=== PATIENT | male | born 1960 | race Asian ===

== ENCOUNTER 2016-10-18 | Outpatient (CLI) | payer MEDICAID | END 2016-10-18 09:16 | disposition home or self-care (01) | DX: R00.2 Palpitations (principal) ==

== ENCOUNTER 2016-10-31 09:53 | Outpatient (CLI) | payer MEDICAID | END 2016-10-31 09:54 | disposition home or self-care (01) | DX: R00.2 Palpitations (principal); D64.9 Anemia, unspecified ==

== ENCOUNTER 2018-06-28 08:00 | Outpatient (CLI) | payer MEDICAID ==
[2018-06-28 18:41] LABS: BILIRUBIN,URINE NEGATIVE (NEGATIVE); GLUCOSE, URINE (UA) NEGATIVE (NEGATIVE); KETONES,URINE (UA) NEGATIVE (NEGATIVE); LEUKOCYTE ESTERASE, URINE SMALL (NEGATIVE); NITRITE,URINE POSITIVE (NEGATIVE); OCCULT BLOOD,URINE NEGATIVE (NEGATIVE); PROTEIN,URINE NEGATIVE (NEGATIVE); UROBILINOGEN,URINE 0.2 (NORMAL) E.U./dL (NORMAL)
[2018-06-28 18:55] LABS: BACTERIA,URINE Few /HPF (None Seen); CLARITY,URINE CLEAR (CLEAR); RBC,URINE None Seen /HPF (0-5); SQUAMOUS EPITHELIAL CELL,UR NONE SEEN (<= Few)
== END 2018-06-28 08:01 | disposition home or self-care (01) ==
LOC: LAB.R 08:00
PROVIDERS: ATTEND Family Medicine
DX: N39.0 Urinary tract infection, site not specified (principal)
CPT/HCPCS: 81001; 87086; 87181

== ENCOUNTER 2018-08-16 08:00 | Outpatient (CLI) | payer MEDICAID ==
[2018-08-16 18:58] LABS: BILIRUBIN,URINE NEGATIVE (NEGATIVE); GLUCOSE, URINE (UA) NEGATIVE (NEGATIVE); KETONES,URINE (UA) NEGATIVE (NEGATIVE); LEUKOCYTE ESTERASE, URINE SMALL (NEGATIVE); NITRITE,URINE POSITIVE (NEGATIVE); OCCULT BLOOD,URINE NEGATIVE (NEGATIVE); PROTEIN,URINE NEGATIVE (NEGATIVE); UROBILINOGEN,URINE 0.2 (NORMAL) E.U./dL (NORMAL)
[2018-08-16 19:20] LABS: CLARITY,URINE SL. CLOUDY (CLEAR)
[2018-08-16 19:21] LABS: BACTERIA,URINE Many /HPF (None Seen); RBC,URINE 0-5 /HPF (0-5); SQUAMOUS EPITHELIAL CELL,UR NONE SEEN (<= Few)
== END 2018-08-16 23:59 | disposition home or self-care (01) ==
LOC: LAB.R 08:00
PROVIDERS: ATTEND Family Medicine
DX: N39.0 Urinary tract infection, site not specified (principal)
CPT/HCPCS: 81001; 87077; 87086; 87181

== ENCOUNTER 2018-10-16 08:00 | Outpatient (CLI) | payer MEDICAID ==
[2018-10-16 18:54] LABS: BASOPHILS % (AUTO) 0.4 %; EOSINOPHILS # (AUTO) 0.3 10^3/uL (0.0-0.7); EOSINOPHILS % (AUTO) 3.6 %; HGB - HEMOGLOBIN 13.1 g/dL (14.0-18.0); LYMPHOCYTES # (AUTO) 1.8 10^3/uL (1.5-3.5); LYMPHOCYTES % (AUTO) 25.6 %; MEAN CORPUSCULAR HEMOGLOBIN 30.4 pg (27.0-31.0); MEAN CORPUSCULAR HGB CONC 32.7 g/dL (32.0-36.0); MEAN CORPUSCULAR VOLUME 92.8 fL (80.0-94.0); MEAN PLATELET VOLUME 7.7 fL (7.4-11.4); MONOCYTES # (AUTO) 0.7 10^3/uL (0.0-1.0); MONOCYTES % (AUTO) 10.1 %; NEUTROPHILS # (AUTO) 4.3 10^3/uL (1.5-6.6); NEUTROPHILS % (AUTO) 60.3 %; PLT - PLATELET COUNT 380 10^3/uL (130-450); RED BLOOD COUNT 4.31 10^6/uL (4.70-6.10); RED CELL DISTRIBUTION WIDTH 13.9 % (12.0-15.0); WHITE BLOOD COUNT 7.2 x10^3/uL (4.8-10.8)
[2018-10-16 19:09] LABS: ALBUMIN 4.5 g/dL (3.2-5.5); ALBUMIN/GLOBULIN RATIO 1.6 (1.0-2.2); BILIRUBIN,TOTAL 0.8 mg/dL (0.2-1.0); CALCIUM 9.3 mg/dL (8.5-10.3); CREATININE 0.7 mg/dL (0.6-1.2); TOTAL PROTEIN 7.3 g/dL (6.7-8.2)
[2018-10-16 19:17] LABS: BILIRUBIN,URINE NEGATIVE (NEGATIVE); GLUCOSE, URINE (UA) NEGATIVE (NEGATIVE); KETONES,URINE (UA) NEGATIVE (NEGATIVE); LEUKOCYTE ESTERASE, URINE TRACE (NEGATIVE); NITRITE,URINE POSITIVE (NEGATIVE); OCCULT BLOOD,URINE NEGATIVE (NEGATIVE); PROTEIN,URINE NEGATIVE (NEGATIVE); UROBILINOGEN,URINE 0.2 (NORMAL) E.U./dL (NORMAL)
[2018-10-16 19:24] LABS: CLARITY,URINE CLEAR (CLEAR)
[2018-10-16 19:45] LABS: BACTERIA,URINE Many /HPF (None Seen); RBC,URINE None Seen /HPF (0-5); SQUAMOUS EPITHELIAL CELL,UR NONE SEEN (<= Few)
== END 2018-10-16 23:59 | disposition home or self-care (01) ==
LOC: LAB.N 08:00
PROVIDERS: ATTEND Physician Assistant Medical
DX: R10.9 Unspecified abdominal pain (principal)
CPT/HCPCS: 36415; 80053; 81001; 85025; 87086

== ENCOUNTER 2019-02-25 16:25 | Emergency (ER) | payer MEDICAID ==
--- NOTE | 2019-02-25 16:42 | ED Physician Documentation ---
PD HPI BACK INJURY - Stated complaint Stated Complaint: BACK PX - History obtained from History obtained from: Patient - History of Present Illness Location: Lower Type of injury: Fall (he states he fell backward from sitting on a log and hurt low back a week ago. Was sore but then started hurting more when he lifted a lawnmower up from ground into his truck bed couple days ago. [place] a twinge and pain and has consistent pain.) Timing - onset: How many weeks ago (1) Timing - duration: Weeks (1) Timing - details: Abrupt onset, Still present Quality: Pain, Spasm Improved by: Rest. No: Meds Worsened by: Moving, Palpating Associated symptoms: No: Fever, Weakness, Numbness, Incontinent of urine Similar symptoms before: Has not had sx before Review of Systems Constitutional: denies: Fever, Myalgias Throat: denies: Sore throat Cardiac: denies: Chest pain / pressure Respiratory: denies: Cough GI: denies: Abdominal Pain, Nausea, Vomiting, Constipation, Diarrhea Skin: denies: Rash, Lesions Neurologic: denies: Focal weakness, Numbness PD PAST MEDICAL HISTORY - Past Medical History Cardiovascular: None Respiratory: None Endocrine/Autoimmune: None GI: None : None HEENT: None Psych: None Musculoskeletal: None Derm: None - Past Surgical History Past Surgical History: No - Present Medications Home Medications: Ambulatory Orders Medication Instructions Recorded Confirmed Ciprofloxacin [Cipro] 500 mg PO DAILY 02/25/19 02/25/19 Methocarbamol [Robaxin] 500 mg PO Q6H PRN #30 tablet 02/25/19 Naproxen 500 mg PO BID #20 tablet 02/25/19 Oxycodone HCl/Acetaminophen 1 each PO Q6H PRN #15 tablet 02/25/19 [Percocet 5-325 mg Tablet] - Allergies Allergies/Adverse Reactions: Allergies Allergy/AdvReac Type Severity Reaction Status Date / Time No Known Drug Allergies Allergy Verified 05/08/14 09:42 - Social History Does the pt smoke?: No Smoking Status: Former smoker Does the pt drink ETOH?: No Does the pt have substance abuse?: No - Immunizations Immunizations are current?: Yes - POLST Patient has POLST: No PD ED PE NORMAL - Vitals Vital signs reviewed: Yes - General General: Alert and oriented X 3, No acute distress (guarding motion of low back), Well developed/nourished - Cardiac Cardiac: RRR, No murmur - Respiratory Respiratory: Clear bilaterally - Abdomen Abdomen: Soft, Non tender - Back Back: No CVA TTP, Other (tender in lower abd lateral muscles mostly. ) - Derm Derm: Normal color, Warm and dry, No rash - Neuro Neuro: Alert and oriented X 3, No motor deficit, No sensory deficit, Normal speech, Other (normal knee reflexes) Results - Vitals Vitals: Oxygen O2 Source Room air - Rads (name of study) lumbar xray Radiology: Prelim report reviewed (no fractures; no acute process), See rad report PD MEDICAL DECISION MAKING - ED course Complexity details: reviewed results, considered differential, d/w patient Departure - Departure Disposition: 01 Home, Self Care Clinical Impression: Acute lumbar myofascial strain Qualifiers: Encounter type: initial encounter Qualified Code(s): S39.012A - Strain of muscle, fascia and tendon of lower back, initial encounter Condition: Stable Record reviewed to determine appropriate education?: Yes Instructions: ED Low Back Pain Injury Follow-Up: Justen Garvey MD [Primary Care Provider] - Prescriptions: Methocarbamol [Robaxin] 500 mg PO Q6H PRN #30 tablet PRN Reason: Spasms Naproxen 500 mg PO BID #20 tablet Oxycodone HCl/Acetaminophen [Percocet 5-325 mg Tablet] 1 each PO Q6H PRN #15 tablet PRN Reason: pain Comments: Your x-ray does not show any significant disc space narrowing nor misalignment. Presume you have a strain and injury of the muscles and ligaments of the low back. Use some anti-inflammatories such as naproxen or ibuprofen twice daily for the next 7 to 10 days. Use muscle relaxant Robaxin 4 times a day for stiffness and spasm. To that add Tylenol or pain medicine oxycodone as needed for pains. Heat and gentle stretching are good. Physical modalities such as chiropractic and massage are good as well. Recheck if not improving over the next several days to week. Discharge Date/Time: 02/25/19 18:36
[2019-02-25] MEDS ORDERED: ACETAMINOPHEN 325 MG TABLET PO STA (17:14)
[2019-02-25] MEDS ORDERED: METHOCARBAMOL 500 MG TABLET PO STA (17:14)
[2019-02-25] MEDS ORDERED: TRIAMCINOLONE 40 MG/ML VIAL IM STA (17:14)
[2019-02-25] MEDS ORDERED: KETOROLAC 30 MG/ML VIAL IM STA (17:14)
--- NOTE | 2019-02-25 18:28 | XRAY Report ---
Reason: low back pain with lifting Procedure Date: 02/25/2019 Accession Number: [id number] / [id number] Procedure: XR - Lumbar Spine 2 View CPT Code: FULL RESULT: EXAM: LUMBOSACRAL SPINE RADIOGRAPHY EXAM DATE: 02/25/2019 05:58 PM. CLINICAL HISTORY: Low back pain with lifting. COMPARISONS: None. TECHNIQUE: 2 views. FINDINGS: Alignment: Normal. No spondylolisthesis or scoliosis. Bones: Five [id number] lumbar vertebral bodies are present. No acute fracture. There is mild to moderate anterior disk osteophyte spurring. Disks: There is mild disk height loss at L4-L5. Other disk spaces are maintained. Facets: Facet joints appear in satisfactory alignment. Sacroiliac Joints: Unremarkable Soft Tissues: There is mild aortic atherosclerotic vascular calcification. IMPRESSION: 1. Negative for fracture and subluxation. Mild disk height loss at L4-L5. RADIA
[2019-02-25 18:36] VITALS: BP 123/85
== END 2019-02-25 18:36 | disposition home or self-care (01) ==
LOC: ED 16:25
DX: S39.012A Strain of muscle, fascia and tendon of lower back, initial encounter (principal); W17.89XA Other fall from one level to another, initial encounter; X50.0XXA Overexertion from strenuous movement or load, initial encounter; Z87.891 Personal history of nicotine dependence
CPT/HCPCS: 72100; 96374; 99283; A9270

== ENCOUNTER 2019-04-07 21:28 | Observation (INO) | payer MEDICAID ==
--- NOTE | 2019-04-07 21:45 | ED Physician Documentation ---
PD HPI DYSPNEA - Stated complaint Stated Complaint: SOA - Chief complaint Chief Complaint: Resp - History obtained from History obtained from: Patient - History of Present Illness Timing - onset: How many weeks ago (1) Timing - onset during: Light activity, Exertion Timing - duration: Weeks (1) Timing - details: Gradual onset (He states he has had some fatigue and low appetite for a month or more and has lost about 20 pounds. He has had low back pain and he attributes his lack of appetite to just hurting. He denies pain i ncreasing with eating. He had been taking anti-inflammatories and was seen in the ER a month ago with prescription for NSAIDs and steroids and pain medicines as well. He states he was having pain still in the low back and had been adding oxycodone that he was crushing and snorting and did feel he breathe some of it in to his lungs. He states his been having progressive dyspnea on exertion the past week and thought it was because of the snorting medications.), Still present (worsening) Inciting event(s): No: Out of meds, URI Improved by: Rest Worsened by: Exertion. No: Laying flat Associated symptoms: Cough, Other (right low back pain for a month or more). No: Fever, Wheezing, Chest pain / discomfort, Bilateral edema Similar symptoms before: Has not had sx before Recently seen: Emergency Dept (for the back pain; no prior complaints of the dyspnea.) Review of Systems Constitutional: reports: Myalgias, Fatigue (with exertional dyspnea for a week). denies: Fever, Chills Nose: reports: Congestion. denies: Rhinorrhea / runny nose, Sinus pressure / pain Throat: denies: Sore throat Cardiac: denies: Chest pain / pressure Respiratory: reports: Dyspnea (for the past week or two, progressive), Cough (mild chronic). denies: Wheezing GI: reports: Bloody / black stool (he says he had black/dark stools starting a week ago for 5-6 days, has gotten browner looking the past day.). denies: Abdominal Pain, Nausea, Vomiting, Diarrhea Endocrine: reports: Weight loss (the past month, with no appetite per patient.) PD PAST MEDICAL HISTORY - Past Medical History Cardiovascular: None Respiratory: None Neuro: None Endocrine/Autoimmune: None GI: None : None HEENT: None Psych: None Musculoskeletal: None Derm: None - Past Surgical History Past Surgical History: No - Present Medications Home Medications: Ambulatory Orders Medication Instructions Recorded Confirmed Ciprofloxacin [Cipro] 500 mg PO DAILY 02/25/19 02/25/19 Methocarbamol [Robaxin] 500 mg PO Q6H PRN #30 tablet 02/25/19 Naproxen 500 mg PO BID #20 tablet 02/25/19 Oxycodone HCl/Acetaminophen 1 each PO Q6H PRN #15 tablet 02/25/19 [Percocet 5-325 mg Tablet] - Allergies Allergies/Adverse Reactions: Allergies Allergy/AdvReac Type Severity Reaction Status Date / Time No Known Drug Allergies Allergy Verified 05/08/14 09:42 - Social History Does the pt smoke?: No Smoking Status: Never smoker Does the pt drink ETOH?: No Does the pt have substance abuse?: No - Immunizations Immunizations are current?: Yes - POLST Patient has POLST: No PD ED PE NORMAL - Vitals Vital signs reviewed: Yes - General General: Alert and oriented X 3, Well developed/nourished - HEENT HEENT: Pharynx benign. No: Moist mucous membranes - Neck Neck: Supple, no meningeal sign, No adenopathy - Cardiac Cardiac: No murmur. No: RRR (regular but tachycardic) - Respiratory Respiratory: No: Clear bilaterally (some exp wheezing noted diffusely, but mild. No coarse sounds. ) - Abdomen Abdomen: Normal bowel sounds, Soft, Non tender, Non distended - Male Male : Deferred - Rectal Rectal: Other (brown to dark stool in vault. Guiac positive testing. No hemorrhoids. ) - Back Back: No spinal TTP (but has tenderness right lower paralumbar muscles focally. No rash nor sores. ) - Derm Derm: Warm and dry, No rash. No: Normal color (mild pallor) - Extremities Extremities: No deformity, No tenderness to palpate, Normal ROM s pain, No edema, No calf tenderness / cord - Neuro Neuro: Alert and oriented X 3, No motor deficit, No sensory deficit, Normal speech, Other (normal knee and ankle reflexes) Results - Vitals Vitals: Vital Signs - 24 hr 04/07/19 04/07/19 04/07/19 21:45 22:19 22:20 Temperature 37.1 C Heart Rate 110 H 110 H 89 Respiratory 16 20 18 Rate Blood Pressure 129/78 135/80 H O2 Saturation 94 96 04/08/19 04/08/19 00:20 00:26 Temperature 37.2 C Heart Rate 93 Respiratory 18 Rate Blood Pressure 104/58 L O2 Saturation 90 L 98 Oxygen O2 Source Nasal cannula Oxygen Flow Rate 2 - Labs Labs: Laboratory Tests 04/07/19 04/07/19 04/07/19 23:02 23:02 23:02 WBC 4.3 L RBC 2.80 L Hgb 7.7 L Hct 23.6 L MCV 84.3 MCH 27.5 MCHC 32.6 RDW 14.4 Plt Count 57 L MPV 9.9 Neut # (Auto) 2.2 Lymph # (Auto) 1.5 Weld # (Auto) 0.4 Eos # (Auto) 0.0 Baso # (Auto) 0.0 Absolute Nucleated RBC 0.11 Nucleated RBC % 2.6 Manual Slide Review Indicated WBC Morphology NORMAL APPEARANCE Platelet Estimate DECREASED (<130,000) Platelet Morphology NORMAL APPEARANCE RBC Morph Micro Appear 1+ OVALOCYTES Sodium 133 L Potassium 3.8 Chloride 98 L Carbon Dioxide 21 Anion Gap 14.0 H BUN 22 H Creatinine 0.9 Estimated GFR (MDRD) 87 L Glucose 114 H Calcium 9.0 Total Bilirubin 0.9 AST 82 H ALT 15 Alkaline Phosphatase 168 H B-Natriuretic Peptide 17 Total Protein 6.8 Albumin 3.4 Globulin 3.4 Albumin/Globulin Ratio 1.0 Lipase 22 Blood Type Recheck Crossmatch IS Only 04/08/19 04/08/19 04/08/19 00:01 00:01 00:38 WBC 4.2 L RBC 2.66 L Hgb 7.4 L Hct 22.3 L MCV 83.8 MCH 27.8 MCHC 33.2 RDW 14.6 Plt Count 52 L MPV 9.2 Neut # (Auto) Lymph # (Auto) Weld # (Auto) Eos # (Auto) Baso # (Auto) Absolute Nucleated RBC Nucleated RBC % Manual Slide Review WBC Morphology Platelet Estimate Platelet Morphology RBC Morph Micro Appear Sodium Potassium Chloride Carbon Dioxide Anion Gap BUN Creatinine Estimated GFR (MDRD) Glucose Calcium Total Bilirubin AST ALT Alkaline Phosphatase B-Natriuretic Peptide Total Protein Albumin Globulin Albumin/Globulin Ratio Lipase Blood Type Recheck O POSITIVE Crossmatch IS Only See Detail - Rads (name of study) chest xray Radiology: Prelim report reviewed (Normal exam), EMP read contemporaneously (I thought the left upper lobe looks slightly abnormal and there was some deviation of the midportion of the bronchus suspicious for mass-effect. As such I ordered a CT of the chest.), See rad report chest CT Radiology: Prelim report reviewed (Emphysematous changes. Mild atelectasis in t he right lower lobe. There are no masses noted in the lung florian. Multiple sclerotic lesions noted in the ribs and spine concerning for metastatic disease. No primary source noted.), See rad report Procedures - General procedure General procedure: He has right low back muscle tenderness similar to month ago, with focal trigger ing of pain on palpation. Trigger point injection done there with Kenalog and lidocaine. No complications. PD MEDICAL DECISION MAKING - ED course Complexity details: reviewed results (The patient did not have much change with the nebulizer. I thought the chest x-ray was slightly abnormal looking. Therefore did a CT of the chest. In the lab testing precluding this we did find the patient to be considerably anemic. I think that the history of the dark stools and did a rectal exam showing some mainly brown coloration but guaiac positive stools. This led to CT the the CT scan results did not show a significant lung process. However there was concern for bony lesions in the spine and ribs. This led to the idea of likely needing a CT of the abdomen and pelvis to look for more primary source especially in the lieu of his back pain he has been having for a month or more.), re-evaluated patient, considered differential (His initial history of snorting pain medicine and having onset of dyspnea and slight cough had me initially evaluating heart and lungs with EKG and chest x-ray. He did not really have any wheezing and had only slight improvement with a nebulizer. Is still sounds likely to have some element of COPD.), d/w patient, d/w staff consultant (Talked with Dr. Jorge is on for surgery who can scope the patient for apparent upper GI bleed, presumably from NSAID and steroid use. I talked with the hospitalist Dr. Teague who will see the patient in the hospital.) Departure - Departure Disposition: ED Place in Observation Clinical Impression: Symptomatic anemia, Dyspnea, Low back pain Condition: Stable
[2019-04-07] MEDS ORDERED: ALBUTEROL NEB 2.5 MG/3 ML INH STA (22:00)
[2019-04-07] MEDS ORDERED: KETOROLAC 30 MG/ML VIAL IM STA (22:01)
[2019-04-07] MEDS ORDERED: TRIAMCINOLONE 40 MG/ML VIAL IM STA (22:01)
[2019-04-07] MEDS: oxyCODONE 5 MG TABLET PO STA ×2 (22:05→22:13)
[2019-04-07] MEDS: METHOCARBAMOL 500 MG TABLET PO STA ×2 (22:05→22:13)
--- NOTE | 2019-04-07 22:51 | XRAY Report ---
Reason: dyspnea/ cough Procedure Date: 04/07/2019 Accession Number: [id number] / [id number] Procedure: XR - Chest 2 View X-Ray CPT Code: 79247 FULL RESULT: EXAM: CHEST RADIOGRAPHY EXAM DATE: 04/07/2019 10:18 PM. CLINICAL HISTORY: Dyspnea/ cough. COMPARISON: 03/10/2015 10:32 AM. TECHNIQUE: 2 views. FINDINGS: Lungs/Pleura: No focal opacities evident. No pleural effusion. No pneumothorax. Normal volumes. Mediastinum: Heart and mediastinal contours are unremarkable. IMPRESSION: No acute cardiopulmonary disease seen. RADIA
[2019-04-07 23:07] LABS: BASOPHILS % (AUTO) 0.5 %; LYMPHOCYTES # (AUTO) 1.5 10^3/uL (1.5-3.5)
[2019-04-07 23:10] LABS: EOSINOPHILS % (AUTO) 0.5 %; HGB - HEMOGLOBIN 7.7 g/dL (14.0-18.0); LYMPHOCYTES % (AUTO) 34.9 %; MEAN CORPUSCULAR HEMOGLOBIN 27.5 pg (27.0-31.0); MEAN CORPUSCULAR HGB CONC 32.6 g/dL (32.0-36.0); MEAN CORPUSCULAR VOLUME 84.3 fL (80.0-94.0); MEAN PLATELET VOLUME 9.9 fL (7.4-11.4); MONOCYTES # (AUTO) 0.4 10^3/uL (0.0-1.0); MONOCYTES % (AUTO) 9.8 %; NEUTROPHILS # (AUTO) 2.2 10^3/uL (1.5-6.6); NEUTROPHILS % (AUTO) 50.6 %; PLT - PLATELET COUNT 57 10^3/uL (130-450); RED CELL DISTRIBUTION WIDTH 14.4 % (12.0-15.0); WHITE BLOOD COUNT 4.3 x10^3/uL (4.8-10.8)
[2019-04-07 23:22] LABS: ALBUMIN 3.4 g/dL (3.2-5.5); BILIRUBIN,TOTAL 0.9 mg/dL (0.2-1.0); CREATININE 0.9 mg/dL (0.6-1.2); TOTAL PROTEIN 6.8 g/dL (6.7-8.2)
[2019-04-07] MEDS ORDERED: IOVERSOL 320 100 ML VIAL IVP ONE (23:53)
[2019-04-08 00:01] LABS: PLATELET ESTIMATE, MANUAL DECREASED (<130,000) (NORMAL); PLATELET MORPHOLOGY NORMAL APPEARANCE (NORMAL)
[2019-04-08] MEDS ORDERED: IOVERSOL 320 100 ML VIAL IVP ONE ×2 (00:19→01:53)
[2019-04-08] MEDS ORDERED: SODIUM CHLORIDE 0.9% 1,000 ML IV ONE (00:27)
[2019-04-08] MEDS ORDERED: PANTOPRAZOLE 40 MG VIAL IVP STA (00:28)
--- NOTE | 2019-04-08 00:37 | CT Report ---
Reason: left upper lobe/mediastinal fullness? Procedure Date: 04/08/2019 Accession Number: [id number] / [id number] Procedure: CT - CHEST W CPT Code: FULL RESULT: EXAM: CT CHEST EXAM DATE: 04/08/2019 12:16 AM. CLINICAL HISTORY: Left upper lobe/mediastinal fullness. Shortness of breath. Cough. COMPARISONS: CHEST 2 VIEW 04/07/2019. TECHNIQUE: Routine helical CT imaging was performed through the chest. IV contrast: Nonionic. Reconstructions: Coronal and sagittal. In accordance with CT protocol optimization, one or more of the following dose reduction techniques were utilized for this exam: automated exposure control, adjustment of mA and/or KV based on patient size, or use of iterative reconstructive technique. FINDINGS: Lungs/Pleura: Emphysema. Minimal right lower lobe atelectasis or infiltrate. No pleural effusion seen. No pneumothorax. Mediastinum: Heart size is normal. Coronary artery calcifications. Trace pericardial effusion. Normal sized mediastinal lymph nodes. Ascending aorta measures 3.8 cm. Mild atherosclerosis. No aortic dissection. Bones: Multiple sclerotic foci are seen in the skeleton, especially the spine and ribs. Visualized Abdomen: Possible fatty infiltration of the liver. The spleen is not completely imaged but may be mildly enlarged. Other: None. IMPRESSION: 1. Emphysema. Minimal atelectasis or infiltrate in the right lower lobe. 2. Multiple sclerotic foci in the skeleton, especially spine and ribs, suspicious for metastatic disease. Is there any history of primary malignancy such as prostate cancer? 3. Coronary artery calcifications. 4. Trace pericardial effusion. 5. Possible fatty liver and mild splenomegaly. RADIA
[2019-04-08 00:44] LABS: HGB - HEMOGLOBIN 7.4 g/dL (14.0-18.0); MEAN CORPUSCULAR HEMOGLOBIN 27.8 pg (27.0-31.0); MEAN CORPUSCULAR HGB CONC 33.2 g/dL (32.0-36.0); MEAN CORPUSCULAR VOLUME 83.8 fL (80.0-94.0); MEAN PLATELET VOLUME 9.2 fL (7.4-11.4); RED BLOOD COUNT 2.66 10^6/uL (4.70-6.10); RED CELL DISTRIBUTION WIDTH 14.6 % (12.0-15.0); WHITE BLOOD COUNT 4.2 x10^3/uL (4.8-10.8)
--- NOTE | 2019-04-08 00:55 | HISTORY & PHYSICAL EXAMINATION ---
Chief Complaint - Chief Complaint Chief Complaint: Shortness of breath, weakness, melena, Persistent continued back pain Respiratory Admission HPI - Admitted From Admitted from: ED - History Obtained From Records Reviewed: RN notes reviewed, Old records reviewed History obtained from: Patient Exam limitations: No limitations - History of Present Illness HPI Comment/Other: This is a pleasant 59-year-old male with Past medical history consistent of acute on chronic back pain, former smoker, lumbago for which patient sought ER physician on 02/25 with an acute lumbar strain after falling from a log and lifting lawnmower was given Robaxin as well as Percocet and has been on naproxen ever since for which he noticed persistence of his back pain and essentially had to resort to crushing Percocet and sniffing this medication for approximately 1 week. He denied any fevers, coughing, Joint swelling, maculopapular rashes, but did not mention dark stools for the last week or so. Patient had been increasing his naproxen use due to his lower back pain and flank pain. Patient had been dyspneic on exertion and short of breath for the past week as well and denied hematemesis, alcohol abuse, or bright red blood per rectum. His vital signs on presentation were hemodynamically stable however presented with a pain of 9/10. Patient's guaiac in the ED was positive and showed a hemoglobin of 7.7 g/dL for which previously he had 13.1 g/dl. In addition patient's AST was elevated at 82, ALT of 15, AP of 168 with platelets of 57, WBC 4.3; new onset pancytopenia. In the ED patient had an EKG normal sinus rhythm at 95 bpm with LVH criteria, patient denies any IV drug use or illicit drug use or history of hepatitis C. Abnormal CT chest. For patient's back pain patient was given 1 dose of 30 mg IV Toradol, for shortness of breath he was given albuterol inhaled nebulizer, 1 dose of Robaxin 500 mg p.o. x1, oxycodone 5 mg p.o. x1, Kenalog injection IM 40 mg x 1. Patient's imaging revealed a chest x-ray which was unremarkable, CT chest did show what appeared to be emphysema due to the fact that patient had 89 to 90% O2 saturation on room air in addition patient had right lower lobe atelectasis versus infiltrate, multiple sclerotic foci in the spine and the ribs concerning for metastatic process, fatty liver with mild splenomegaly and trace pericardial effusion. PMH/PSH - Past Medical History Cardiovascular: positive: None Respiratory: positive: None Neuro: positive: None Endocrine/Autoimmune: positive: None GI: positive: None : positive: None HEENT: positive: None Psych: positive: None Musculoskeletal: positive: None Derm: positive: None MRSA Hx?: No Social & Family Hx - Social History Does the pt smoke?: No Smoking Status: Never smoker Does the pt drink ETOH?: No Does the pt have substance abuse?: No - POLST Patient has POLST: No Meds/Allgy - Home Medications Home Medications: Ambulatory Orders Medication Instructions Recorded Confirmed Ciprofloxacin [Cipro] 500 mg PO DAILY 02/25/19 02/25/19 Methocarbamol [Robaxin] 500 mg PO Q6H PRN #30 tablet 02/25/19 Naproxen 500 mg PO BID #20 tablet 02/25/19 Oxycodone HCl/Acetaminophen 1 each PO Q6H PRN #15 tablet 02/25/19 [Percocet 5-325 mg Tablet] - Allergies Allergies/Adverse Reactions: Allergies Allergy/AdvReac Type Severity Reaction Status Date / Time No Known Drug Allergies Allergy Verified 05/08/14 09:42 Review of Systems - All Other Systems All Other Systems: reports: Reviewed and negative Prior Level of Functionality: Patient is ambulatory with adequate home ADLs Exam - Vital Signs Vital Signs: Vital Signs x48h Temp Pulse Resp BP Pulse Ox 04/08/19 00:26 98 04/08/19 00:20 37.2 C 93 18 104/58 L 90 L 04/07/19 22:20 89 18 04/07/19 22:19 37.1 C 110 H 20 135/80 H 96 04/07/19 21:45 110 H 16 129/78 94 - Physical Exam General Appearance: positive: No acute distress, Alert Eyes Bilateral: positive: Normal inspection, PERRL, EOMI, No scleral icterus, Other (Conjunctival pallor) ENT: positive: ENT inspection nml, Pharynx nml, Dry mucous membranes Neck: positive: Nml inspection, Thyroid nml, No JVD, Trachea midline. negative: Thyromegaly Respiratory: positive: Chest non-tender, No respiratory distress, Breath sounds nml Cardiovascular: positive: Regular rate & rhythm, No murmur, No gallop Peripheral Pulses: positive: 2+ Abdomen: positive: No organomegaly, Nml bowel sounds, No distention, Splenomegaly. negative: Guarding, Rebound, Abnml bowel sounds, Bruit Rectal: positive: Stool - heme POS Back: positive: Nml inspection Skin: positive: No rash, Warm, Pallor. negative: Skin rash, Embolic lesions Extremities: positive: Non-tender, Full ROM, Nml appearance Neurologic/Psychiatric: positive: Oriented x3, CN's nml (2-12) Results - Lab Results Lab results reviewed: Yes Fish Bones: 04/08/19 05:00 04/08/19 05:00 Other Lab Results: Lab Results x24hrs 04/08/19 04/07/19 04/07/19 Range/Units 00:01 23:02 23:02 WBC 4.2 L (4.8-10.8) x10^3/uL RBC 2.66 L (4.70-6.10) 10^6/uL Hgb 7.4 L (14.0-18.0) g/dL Hct 22.3 L (42.0-52.0) % MCV 83.8 (80.0-94.0) fL MCH 27.8 (27.0-31.0) pg MCHC 33.2 (32.0-36.0) g/dL RDW 14.6 (12.0-15.0) % Plt Count 52 L (130-450) 10^3/uL MPV 9.2 (7.4-11.4) fL Neut # (Auto) (1.5-6.6) 10^3/uL Lymph # (Auto) (1.5-3.5) 10^3/uL [place] # (Auto) (0.0-1.0) 10^3/uL Eos # (Auto) (0.0-0.7) 10^3/uL Baso # (Auto) (0.0-0.1) 10^3/uL Absolute Nucleated RBC x10^3/uL Nucleated RBC % /100WBC Manual Slide Review WBC Morphology (NORMAL) Platelet Estimate (NORMAL) Platelet Morphology (NORMAL) RBC Morph Micro Appear (NORMAL) Sodium 133 L (135-145) mmol/L Potassium 3.8 (3.5-5.0) mmol/L Chloride 98 L (101-111) mmol/L Carbon Dioxide 21 (21-32) mmol/L Anion Gap 14.0 H (6-13) BUN 22 H (6-20) mg/dL Creatinine 0.9 (0.6-1.2) mg/dL Estimated GFR (MDRD) 87 L (>89) Glucose 114 H (70-100) mg/dL Calcium 9.0 (8.5-10.3) mg/dL Total Bilirubin 0.9 (0.2-1.0) mg/dL AST 82 H (10-42) IU/L ALT 15 (10-60) IU/L Alkaline Phosphatase 168 H (42-121) IU/L B-Natriuretic Peptide 17 (5-100) pg/mL Total Protein 6.8 (6.7-8.2) g/dL Albumin 3.4 (3.2-5.5) g/dL Globulin 3.4 (2.1-4.2) g/dL Albumin/Globulin Ratio 1.0 (1.0-2.2) Lipase 22 (22-51) U/L 04/07/ Range/Units 23:02 WBC 4.3 L (4.8-10.8) x10^3/uL RBC 2.80 L (4.70-6.10) 10^6/uL Hgb 7.7 L (14.0-18.0) g/dL Hct 23.6 L (42.0-52.0) % MCV 84.3 (80.0-94.0) fL MCH 27.5 (27.0-31.0) pg MCHC 32.6 (32.0-36.0) g/dL RDW 14.4 (12.0-15.0) % Plt Count 57 L (130-450) 10^3/uL MPV 9.9 (7.4-11.4) fL Neut # (Auto) 2.2 (1.5-6.6) 10^3/uL Lymph # (Auto) 1.5 (1.5-3.5) 10^3/uL [place] # (Auto) 0.4 (0.0-1.0) 10^3/uL Eos # (Auto) 0.0 (0.0-0.7) 10^3/uL Baso # (Auto) 0.0 (0.0-0.1) 10^3/uL Absolute Nucleated RBC 0.11 x10^3/uL Nucleated RBC % 2.6 /100WBC Manual Slide Review Indicated WBC Morphology NORMAL APPEARANCE (NORMAL) Platelet Estimate DECREASED (<130,000) (NORMAL) Platelet Morphology NORMAL APPEARANCE (NORMAL) RBC Morph Micro Appear 1+ OVALOCYTES (NORMAL) Sodium (135-145) mmol/L Potassium (3.5-5.0) mmol/L Chloride (101-111) mmol/L Carbon Dioxide (21-32) mmol/L Anion Gap (6-13) BUN (6-20) mg/dL Creatinine (0.6-1.2) mg/dL Estimated GFR (MDRD) (>89) Glucose (70-100) mg/dL Calcium (8.5-10.3) mg/dL Total Bilirubin (0.2-1.0) mg/dL AST (10-42) IU/L ALT (10-60) IU/L Alkaline Phosphatase (42-121) IU/L B-Natriuretic Peptide (5-100) pg/mL Total Protein (6.7-8.2) g/dL Albumin (3.2-5.5) g/dL Globulin (2.1-4.2) g/dL Albumin/Globulin Ratio (1.0-2.2) Lipase (22-51) U/L - Diagnostic Imaging Results Diagnostic Imaging Results: positive: Final report reviewed - EKG Results EKG Interpreted Independently: Yes EKG Comparison: positive: Old EKG unavailable Impression/Plan - Problem List Problem List: 1. Acute symptomatic upper GI blood loss anemia with associated melanotic stools secondary to NSAID use -Patient presented with shortness of breath and clinically appears with pallor and hemoglobin of 7.7 when prior hemoglobin was 13.1. Fecal occult blood test x1+. Type and crossmatch 2 units and transfuse with threshold of less than 7.0 g/dL in a patient without evidence of coronary artery disease or heart failure. CT abdomen pelvis with contrast to follow as patient has evidence of multiple sclerotic lesions at the level of the spine and liver concerning for metastatic process. In addition, will place on IV PPI, clears diet, possible endoscopy by general surgery to evaluate for gastric erosions that may be NSAID induced. May also benefit from Carafate. Patient did receive IV Toradol in the ED for his back pain. Serial H&H monitoring. Patient also has underlying pancytopenia. Iron studies, B12 and folic acid to follow. 2. Hyponatremia secondary to dehydration -Would place on IV fluids and correct underlying electrolytes, magnesium to follow and correct as well. Likely contributing to patient's weakness as well. Avoid nephrotoxic agents. 3. Acute mild COPD exacerbation with emphysema on CT -Patient was a former smoker and this likely contributing to patient's shortness of breath. Placed on duo nebs as needed along with performance plus Pulmicort twice daily. Incentive spirometry as patient has right lower lobe atelectasis as well. Does not have what initially was thought as a chemical pneumonitis from patient's snorting crushed Percocet. No evidence of pneumonia. 4. New onset pancytopenia -Unclear of etiology, patient denies illicit or IV drug use. Will obtain an acute hepatitis panel. Might have underlying malignancy as this may correlate with hematological process as well. Will obtain work-up for prostate cancer/multiple myeloma. Transaminitis present. Obtain acute hepatitis panel. 5. Suspected prostate cancer with Multiple sclerotic foci in the spine/ribs with associate Lymphadenopathy, concerning for metastatic disease Multiple sclerotic bony lesions seen to spine and ribs on CT chest with contr ast. Free PSA and total PSA markedly elevated. Likely prostate CA with bony mets. In addition patient will also benefit from endoscopy with biopsies to see if gastric malignancy is also present. We will continue with lab work-up with SPEP/UPEP, LDH, daily CMP and CBC. We will also order a whole-body bone scan. Differential diagnosis includes multiple myeloma. CT abdomen pelvis shows bilateral iliac lymph nodes measuring up to 1.4 cm. Metastatic disease not excluded. Multiple sclerotic foci in the spine and pelvis, presumedly metastatic. Sclerotic area in the right femoral head which could be due to avascular necrosis. Metastatic disease also in the differential diagnosis. L-spine CT scan shows; Numerous sclerotic lesions throughout the lumbar spine, sacrum and pelvis concerning for metastatic disease. Mild compression deformity of the L1 superior endplate. 6. Continued Acute on chronic back pain/flank pain secondary to #5 -Patient received IV Toradol, Robaxin and oxycodone in the ED. We will continue with pain control with narcotics and avoid NSAIDs for now. Patient has a component of sclerotic lesions with spine involvement and unclear if cord compression is present however patient lacks bowel or bladder incontinence or signs or symptoms of radiculopathy. Continue with pain medical supportive care. Lidoderm plus Flexeril plus oxycodone for now. 7. History of chronic tobacco use -This is a risk factor for patient's underlying malignancy if present. 8. Generalized weakness secondary to symptomatic anemia -We will correct underlying causes of anemia as well as IV fluids for patient dehydration and maximize oxygenation for patient's underlying COPD with emph ysema. 9. Nonalcoholic steatosis hepatitis -This was an incidental finding on CT chest. CT abdomen pelvis to follow. Patient is nonalcoholic drinker. Will initiate DVT prophylaxis with SCD boots, GI prophylaxis will already be on IV Protonix. CODE STATUS: Full code Core Measures - Anticipated LOS I expect patient to be DC'd or transferred within 96 hours.: Yes - Issues Hospital Issues and Management Plan: Type and screen 2 units and likelihood of transfusion less than 7 g/dL, [facility] status, endoscopy, GI/anemia work-up, multiple myeloma work- up, prostate cancer work-up. CT scan L-spine - DVT/VTE - Prophylaxis VTE/DVT Device ordered at admit?: Yes VTE/DVT Prophylaxis med ordered at admit?: No Not Ordered - Medical Reason: Contraindicated - Stroke - Rehab Assessment Rehab services assessment to be ordered?: No Not Ordered - Medical Reason: Not indicated - AMI - Statin at Admit Aspirin Prescribed on Admit: No Not Ordered - Medical Reason: Not indicated
[2019-04-08] MEDS ORDERED: ACETAMINOPHEN 325 MG TABLET PO PRN (01:00)
[2019-04-08] MEDS ORDERED: PROCHLORPERAZINE 10 MG/2 ML VIAL IVP PRN (01:00)
[2019-04-08] MEDS ORDERED: ONDANSETRON ODT 4 MG TABLET TL PRN (01:00)
[2019-04-08] MEDS ORDERED: HYDROmorphone 0.5 MG/0.5 ML SYRINGE IVP PRN (01:00)
[2019-04-08] MEDS ORDERED: HYDROmorphone 1 MG/ML CARPUJECT IVP STA (01:14)
[2019-04-08] MEDS ORDERED: CYCLOBENZAPRINE 10 MG TABLET PO PRN (01:16)
[2019-04-08] MEDS ORDERED: SODIUM CHLORIDE 0.9% 500 ML IV ONE (02:19)
[2019-04-08 02:24] LABS: PSA FREE 68.81 ng/mL (0.16-2.81)
[2019-04-08 02:36] LABS: % IRON SATURATION 17 % (20-50); IRON 45 ug/dL (45-182); TOTAL IRON BINDING CAPACITY 269 ug/dL (250-450); TRANSFERRIN 192 mg/dL (180-329)
[2019-04-08] MEDS: DEXTROSE 5%-0.9% NACL 1,000 ML IV SCH ×3 (02:56→23:29)
--- NOTE | 2019-04-08 02:56 | CT Report ---
Reason: bone lesions seen on chest CT. has had back pain. Procedure Date: 04/08/2019 Accession Number: [id number] / [id number] Procedure: CT - Abdomen/Pelvis W CPT Code: FULL RESULT: EXAM: CT ABDOMEN AND PELVIS EXAM DATE: 04/08/2019 02:10 AM. CLINICAL HISTORY: Bone lesions seen on chest CT. Has had back pain. COMPARISONS: None. TECHNIQUE: Routine helical CT imaging was performed through the abdomen and pelvis. IV contrast: 100 ML OPTIRAY 320. Enteric contrast: No. Reconstructions: Coronal and sagittal. In accordance with CT protocol optimization, one or more of the following dose reduction techniques were utilized for this exam: automated exposure control, adjustment of mA and/or KV based on patient size, or use of iterative reconstructive technique. FINDINGS: Lung Bases: See separate chest CT. Liver: Possible mild fatty infiltration. Gallbladder/Bile Ducts: Unremarkable. Spleen: Enlarged at 14 cm. Pancreas: Normal. Adrenal Glands: Normal. Kidneys: Normal. No masses or hydronephrosis. Peritoneal Cavity/Bowel: No bowel obstruction seen. Moderate stool in the colon. No diverticulitis. No free air or free fluid. Bilateral iliac lymph nodes measuring up to 1.4 cm. Appendix is partially seen and visualized portions appear normal. Pelvic Organs: Visualized pelvic organs show no obvious abnormality. Vasculature: Moderate atherosclerosis. No aortic aneurysm. Bones: Multiple sclerotic foci are seen in the spine and pelvis, presumably metastatic. Sclerotic area in the right femoral head which may represent avascular necrosis, although metastatic disease is also in the differential diagnosis. Degenerative joint disease in the hips. Other: None. IMPRESSION: 1. Possible fatty liver with mild splenomegaly. 2. Moderate stool in the colon. No acute inflammatory or obstructive process identified in the abdomen or pelvis. 3. Bilateral iliac lymph nodes measuring up to 1.4 cm. Metastatic disease not excluded. 4. Multiple sclerotic foci in the spine and pelvis, presumably metastatic. 5. Sclerotic area in the right femoral head which could be due to avascular necrosis. Metastatic disease also in the differential diagnosis. RADIA
[2019-04-08] MEDS: LIDOCAINE PATCH 5% TOP SCH ×2 (02:59→09:13)
--- NOTE | 2019-04-08 03:08 | CT Report ---
Reason: Multiple Sclerotic lesions to spine Procedure Date: 04/08/2019 Accession Number: [id number] / [id number] Procedure: CT - LUMBAR SPINE W CPT Code: FULL RESULT: EXAM: CT LUMBAR SPINE WITH CONTRAST EXAM DATE: 04/08/2019 02:39 AM. CLINICAL HISTORY: Multiple Sclerotic lesions to spine. COMPARISONS: CT of the abdomen and pelvis dated 04/08/2019. TECHNIQUE: Thin-section axial images were acquired of the lumbar spine from T12 to S1 after administration of intravenous contrast. Post-processing: Coronal and sagittal reformats. Other: None. IV contrast: 100 ML OPTIRAY 320. In accordance with CT protocol optimization, one or more of the following dose reduction techniques were utilized for this exam: automated exposure control, adjustment of mA and/or KV based on patient size, or use of iterative reconstructive technique. FINDINGS: Alignment: No scoliosis or spondylolisthesis. Bones: Five [id number]-bvmgsvy lumbar vertebral bodies are present. Numerous sclerotic lesions are identified throughout the lumbar spine, sacrum and pelvis. There is slight deformity involving the superior endplate of L1. There is less than 25% height loss anteriorly. There is no evidence of retropulsion. Disk Levels/Facets: There is no evidence of focal disk pathology. Mild degeneration is noted with endplate osteophytosis at multiple levels most pronounced at L4-L5. Spinal Canal: No abnormally enhancing areas by CT. Musculature: Normal. No fatty atrophy. Other: The visualized retroperitoneum is unremarkable. Excreted contrast is noted in the renal collecting systems and bladder from prior abdominal CT same date. IMPRESSION: 1. Numerous sclerotic lesions throughout the lumbar spine, sacrum and pelvis concerning for metastatic disease. 2. Mild compression deformity of the L1 superior endplate, age indeterminate. Consider MRI to assess for acuity. Otherwise no CT evidence of acute compression or pathologic fracture. 3. Mild degenerative change. RADIA
[2019-04-08 05:37] LABS: HGB - HEMOGLOBIN 7.5 g/dL (14.0-18.0)
[2019-04-08 05:55] LABS: ALBUMIN 3.4 g/dL (3.2-5.5); BILIRUBIN,TOTAL 0.8 mg/dL (0.2-1.0); CREATININE 0.8 mg/dL (0.6-1.2); TOTAL PROTEIN 6.8 g/dL (6.7-8.2)
[2019-04-08 05:57] LABS: BASOPHILS % (AUTO) 0.5 %; EOSINOPHILS % (AUTO) 0.9 %; HGB - HEMOGLOBIN 7.4 g/dL (14.0-18.0); LYMPHOCYTES # (AUTO) 1.3 10^3/uL (1.5-3.5); LYMPHOCYTES % (AUTO) 28.7 %; MEAN CORPUSCULAR HEMOGLOBIN 27.2 pg (27.0-31.0); MEAN CORPUSCULAR HGB CONC 32.3 g/dL (32.0-36.0); MEAN CORPUSCULAR VOLUME 84.2 fL (80.0-94.0); MEAN PLATELET VOLUME 11.3 fL (7.4-11.4); MONOCYTES # (AUTO) 0.4 10^3/uL (0.0-1.0); MONOCYTES % (AUTO) 8.9 %; NEUTROPHILS # (AUTO) 2.6 10^3/uL (1.5-6.6); NEUTROPHILS % (AUTO) 58.3 %; PLT - PLATELET COUNT 62 10^3/uL (130-450); RED BLOOD COUNT 2.72 10^6/uL (4.70-6.10); RED CELL DISTRIBUTION WIDTH 14.7 % (12.0-15.0); WHITE BLOOD COUNT 4.4 x10^3/uL (4.8-10.8)
[2019-04-08] MEDS: SODIUM CHLORIDE FLUSH 0.9% 10 ML SYRINGE IVP SCH ×4 (06:21→23:32)
[2019-04-08 06:40] LABS: PLATELET ESTIMATE, MANUAL DECREASED (<130,000) (NORMAL); PLATELET MORPHOLOGY NORMAL APPEARANCE (NORMAL)
[2019-04-08] MEDS ORDERED: PANTOPRAZOLE 40 MG VIAL IVP SCH (07:00)
[2019-04-08] MEDS ORDERED: ALBUTEROL NEB 2.5 MG/3 ML INH PRN (08:41)
[2019-04-08] MEDS: IPRATROPIUM/ALBUTEROL 3 ML NEB INH PRN ×2 (08:50→20:39)
[2019-04-08] MEDS: FORMOTEROL FUMARATE NEB 20 MCG/2 ML INH SCH ×2 (08:50→20:39)
[2019-04-08] MEDS: BUDESONIDE 0.5 MG/2 ML NEB INH SCH ×2 (08:50→20:39)
[2019-04-08] MEDS: CYCLOBENZAPRINE 10 MG TABLET PO PRN ×2 (09:13→20:14)
[2019-04-08] MEDS: POLYETHYLENE GLYCOL 3350 17 GM PACKET PO SCH (09:15)
--- NOTE | 2019-04-08 10:18 | CONSULTATION NOTE ---
Referring Provider Name of Referring Provider:: Hospitalist Service Consult Date: 04/08/19 Chief Complaint - Chief Complaint Chief Complaint: Severe anemia History of Present Illness - Admitted From Admitted From:: Emergency Department - History Obtained From Records Reviewed: Drs and Nurses notes History obtained from: Patient and notes Exam Limitations: None - History of Present Illness HPI Comment/Other: Sidney is a pleasant 59-year-old gentleman who has a history of fairly severe acute on chronic back pain related to an injury.Laboratory drugs as well as narcotics. He presented to the emergency room last evening complaining of severe back pain as well as shortness of breath and weakness. He was found at that time to have severe anemia with hemoglobin of 7.7 as well as evidence of COPD and emphysema on chest x-ray and lytic lesions in his spine on CT scan.He has been admitted for hydration, supportive care, and possibly transfusion.I have been asked to see him regarding endoscopy and colonoscopy.Sidney says he has had a colonoscopy at sometime in the past. He thinks it was 5 or 10 years ago.He does not recall any abnormalities. History - Past Medical History Cardiovascular: reports: None Respiratory: reports: None Neuro: reports: None Endocrine/Autoimmune: reports: None GI: reports: None : reports: None HEENT: reports: None Psych: reports: None Musculoskeletal: reports: None Derm: reports: None MRSA Hx?: No - POLST Patient has POLST: No Meds/Allgy - Home Medications Home Medications: Ambulatory Orders Medication Instructions Recorded Confirmed Ciprofloxacin [Cipro] 500 mg PO DAILY 02/25/19 02/25/19 Methocarbamol [Robaxin] 500 mg PO Q6H PRN #30 tablet 02/25/19 Naproxen 500 mg PO BID #20 tablet 02/25/19 Oxycodone HCl/Acetaminophen 1 each PO Q6H PRN #15 tablet 02/25/19 [Percocet 5-325 mg Tablet] - Allergies Allergies/Adverse Reactions: Allergies Allergy/AdvReac Type Severity Reaction Status Date / Time No Known Drug Allergies Allergy Verified 05/08/14 09:42 Review of Systems - Constitutional Constitutional: reports: Fatigue, Weakness - Eyes Eyes: denies: Pain, Irritation - Ears, Nose & Throat Ears, Nose & Throat: reports: Vertigo. denies: Tinnitus, Hoarseness - Cardiovascular Cariovascular: reports: Lightheadedness. denies: Palpitations, Chest pain - Respiratory Respiratory: reports: Cough, SOB at rest, SOB with exertion. denies: Wheezing, Hemoptysis - Gastrointestinal Gastrointestinal: reports: Reflux/heartburn. denies: Abdominal pain, Abdominal distention, Diarrhea, Change in bowel habits - Genitourinary Genitourinary: denies: Dysuria, Frequency, Urgency - Musculoskeletal Musculoskeletal: reports: Back pain. denies: Muscle pain - Integumentary Integumentary: denies: Rash - Hematologic/Lymphatic Hematologic/Lymphatic: denies: Anemia, Bruising, Blood clots Exam - Vital Signs Reviewed Vital Signs: Yes Vital Signs: Vital Signs x48h Temp Pulse Pulse Resp BP Pulse Ox 04/08/19 08:56 95 16 04/08/19 08:15 37.0 C 88 14 122/71 92 - Physical Exam General Appearance: positive: No acute distress, Alert Eyes Bilateral: positive: Normal inspection, PERRL, EOMI ENT: positive: ENT inspection nml Neck: positive: Nml inspection, No JVD, Trachea midline Respiratory: positive: Chest non-tender, No respiratory distress, Breath sounds nml Cardiovascular: positive: Regular rate & rhythm, No murmur Abdomen: positive: Nml bowel sounds, No distention, Tenderness (Very minimal tenderness to palpation in the epigastrium). negative: Guarding, Rebound Back: negative: CVA tenderness (R), CVA tenderness (L) Skin: positive: Color nml Extremities: positive: Non-tender Conclusion/Plan - Diagnosis Diagnosis: Severe acute blood loss anemia - Plan Plan: I have recommended upper and lower GI endoscopy. We have discussed the risks and benefits of the procedure and it has been scheduled for tomorrow afternoon. The patient expressed an understanding of these risks and benefits and a desire to complete the procedure. - Lab Results Lab results reviewed: Yes Fish Bones: 04/08/19 05:00 04/08/19 05:00 - Diagnostic Imaging Results Diagnostic Imaging Results: positive: Final report reviewed, Read contemporaneously Diagnostic Imaging Results Comments: Lytic lesions noted in the spine. Fatty liver. No obvious lesions of the bowel.
[2019-04-08 11:23] LABS: HGB - HEMOGLOBIN 7.8 g/dL (14.0-18.0)
[2019-04-08] MEDS: HYDROcod/ACETAM 10 MG/325 MG TABLET PO PRN (14:13)
[2019-04-08] MEDS: SODIUM CHLORIDE FLUSH 0.9% 10 ML SYRINGE IVP PRN ×2 (15:26→20:14)
--- NOTE | 2019-04-08 15:45 | Nuclear Medicine Report ---
Reason: Multiple sclerotic lesions to spine and ribs Procedure Date: 04/08/2019 Accession Number: [id number] / [id number] Procedure: NM - Bone Whole Body CPT Code: FULL RESULT: EXAM: BONE SCAN EXAM DATE: 04/08/2019 03:13 PM. CLINICAL HISTORY: Multiple sclerotic lesions to spine and ribs. COMPARISON: ABDOMEN/PELVIS W/ 04/08/2019 2:10 AM LUMBAR SPINE W04/08/2019 2:10 AM CHEST W04/07/2019 11:56 PM. TECHNIQUE: Following the intravenous administration of 31.2 mCi of technetium 99m MDP and an appropriate delay, a whole-body scan was performed in anterior and posterior projections. Site-specific spot views of the region of interest were obtained in various projections. FINDINGS: Exam Quality: Kidney and soft tissue activity is very faint. Skull: No suspicious focal lesions. Thorax: There are multiple bilateral rib and sternal lesions. Pelvis: There are multiple pelvic lesions, including a large area of abnormal increased uptake in the sacrum and posterior iliac bones. Spine: There are multiple lesions in the cervical, thoracic, and lumbar spine. Extremities: There are small foci of abnormal increased uptake in the proximal humeri and in the proximal right femur. IMPRESSION: Scintigraphic findings consistent with diffuse skeletal metastatic disease. RADIA
--- NOTE | 2019-04-08 16:44 | PROVIDER PROGRESS NOTE ---
Subjective - Prog Note Date Prog Note Date: 04/08/19 - Subjective Pt reports feeling: Improved Subjective: pt report he did not have bowel movement today. he felt tired but denies chest pain, and shortness of breath, dizziness. pt is planed to have scopy on tomorrow Discussed with pt about his multiple bone lytic lesion and elevated PSA. advise pt followup oncologist as out-pt after d/c, pt agree the plan Current Medications - Current Medications Current Medications: Active Medications Acetaminophen (Tylenol) 650 mg PO Q4HR PRN PRN Reason: Pain 1 to 4 Hydrocodone Bitart/Acetaminophen (Victor 10 Mg/325 Mg) 1 tab PO Q4HR PRN PRN Reason: Pain 8 to 10 Last Admin: 04/08/19 14:13 Dose: 1 tab Albuterol () 2.5 mg INH RTQ4H PRN PRN Reason: Wheezing Albuterol/Ipratropium (Duoneb) 3 ml INH RTQID PRN PRN Reason: Wheezing Last Admin: 04/08/19 08:50 Dose: 3 ml Budesonide (Pulmicort) 0.5 mg INH RTBID [facility] Last Admin: 04/08/19 08:50 Dose: 0.5 mg Cyclobenzaprine HCl (Flexeril) 10 mg PO TID PRN PRN Reason: muscle spasms Last Admin: 04/08/19 09:13 Dose: 10 mg Cyclobenzaprine HCl (Flexeril) 10 mg PO TID PRN PRN Reason: Spasms Ferrous Sulfate (Feosol) 325 mg PO BIDWM [facility] Formoterol Fumarate (Perforomist) 20 mcg INH RTBID [facility] Last Admin: 04/08/19 08:50 Dose: 20 mcg Hydromorphone HCl (Dilaudid Inj Syringe) 0.5 mg IVP Q2H PRN PRN Reason: Pain 8 to 10 Last Admin: 04/08/19 15:26 Dose: 0.5 mg Dextrose/Sodium Chloride (D5ns) 1,000 mls @ 100 mls/hr IV .Q10H [facility] Last Admin: 04/08/19 12:34 Dose: 100 mls/hr Lidocaine (Lidoderm Patch) 2 patch TOP DAILY [facility] Last Admin: 04/08/19 09:13 Dose: Not Given Ondansetron HCl (Zofran Odt) 4 mg TL Q6HR PRN PRN Reason: Nausea / Vomiting Pantoprazole Sodium (Protonix) 40 mg IVP BID [facility] Polyethylene Glycol (Miralax) 17 gm PO DAILY [facility] Last Admin: 04/08/19 09:15 Dose: Not Given Prochlorperazine Edisylate (Compazine Inj) 10 mg IVP Q6HR PRN PRN Reason: Nausea / Vomiting Sodium Chloride (Normal Saline Flush 0.9%) 10 ml IVP PRN PRN PRN Reason: NEEDED PER PROVIDER ORDERS Last Admin: 04/08/19 15:26 Dose: 10 ml Sodium Chloride (Normal Saline Flush 0.9%) 10 ml IVP 0100,0900,1700 [facility] Last Admin: 04/08/19 09:14 Dose: Not Given Sodium Sulfate/Potass Sulf/Mag Sulf (Suprep Bowel Prep Kit) 177 ml PO 1800,0500 [facility] Stop: 04/09/19 05:01 Ciprofloxacin [Cipro] 500 mg PO DAILY 02/25/19 Objective - Vital Signs/Intake & Output Reviewed Vital Signs: Yes Vital Signs: Vital Signs x48h Temp Pulse Pulse Resp BP Pulse Ox 04/08/19 16:26 36.6 C 83 18 111/57 L 93 04/08/19 14:00 36.7 C 84 16 105/54 L 97 04/08/19 08:56 95 16 Intake & Output: Intake & Output 04/05/19 04/06/19 04/07/19 04/08/19 23:59 23:59 23:59 23:59 Intake Total 2783.333 Output Total 1375 Balance 1408.333 - Objective General Appearance: positive: No acute distress, Alert. negative: Lethargic Eyes Bilateral: positive: Normal inspection, PERRL, No lid inflammation, Conjun ctivae nml ENT: positive: ENT inspection nml, Pharynx nml, No signs of dehydration. negative: Purulent nasal drainage, Pharyngeal erythema, Oral lesions Neck: positive: Nml inspection, Thyroid nml, No JVD, Trachea midline. negative: Thyromegaly, Lymphadenopathy (R), Lymphadenopathy (L) Respiratory: positive: Chest non-tender, No respiratory distress, Breath sounds nml. negative: Wheezes, Rales, Rhonchi Cardiovascular: positive: Regular rate & rhythm, No murmur, No gallop. negative: Irregularly irregular, Extrasystoles, Tachycardia, Bradycardia, JVD present, Systolic murmur, Diastolic murmur Peripheral Pulses: 2+ Radial (R), 2+ Radial (L), 2+ Dorsalis pedis (R), 2+ Dorsalis pedis (L) Abdomen: positive: Non-tender, No organomegaly, Nml bowel sounds, No distention. negative: Tenderness, Guarding, Rebound Back: positive: Nml inspection. negative: CVA tenderness (R), CVA tenderness (L) Skin: positive: Color nml, No rash, Warm, Dry. negative: Cyanosis, Diaphoresis, Pallor Extremities: positive: Non-tender, Full ROM, Nml appearance. negative: Calf tenderness, Joint swelling, Yovani's sign/cords Neurologic/Psychiatric: positive: Oriented x3, Sensation nml, Mood/affect nml. negative: Weakness, Sensory loss, Facial droop, Slurred/abnml speech, Depressed mood/affect - Lab Results Fish Bones: 04/08/19 11:18 04/08/19 05:00 Other Labs: Lab Results x24hrs 04/08/19 04/08/19 04/08/19 Range/Units 11:18 05:00 05:00 WBC (4.8-10.8) x10^3/uL RBC (4.70-6.10) 10^6/uL Hgb 7.8 L 7.5 L (14.0-18.0) g/dL Hct 23.2 L 22.8 L (42.0-52.0) % MCV (80.0-94.0) fL MCH (27.0-31.0) pg MCHC (32.0-36.0) g/dL RDW (12.0-15.0) % Plt Count (130-450) 10^3/uL MPV (7.4-11.4) fL Neut # (Auto) (1.5-6.6) 10^3/uL Lymph # (Auto) (1.5-3.5) 10^3/uL Logan # (Auto) (0.0-1.0) 10^3/uL Eos # (Auto) (0.0-0.7) 10^3/uL Baso # (Auto) (0.0-0.1) 10^3/uL Absolute Nucleated RBC x10^3/uL Nucleated RBC % /100WBC Manual Slide Review WBC Morphology (NORMAL) Platelet Estimate (NORMAL) Platelet Morphology (NORMAL) RBC Morph Micro Appear (NORMAL) Sodium 132 L (135-145) mmol/L Potassium 4.2 (3.5-5.0) mmol/L Chloride 100 L (101-111) mmol/L Carbon Dioxide 20 L (21-32) mmol/L Anion Gap 12.0 (6-13) BUN 20 (6-20) mg/dL Creatinine 0.8 (0.6-1.2) mg/dL Estimated GFR (MDRD) 99 (>89) Glucose 120 H (70-100) mg/dL Calcium 9.0 (8.5-10.3) mg/dL Iron (45-182) ug/dL TIBC (250-450) ug/dL % Saturation (20-50) % Transferrin (180-329) mg/dL Total Bilirubin 0.8 (0.2-1.0) mg/dL AST 76 H (10-42) IU/L ALT 16 (10-60) IU/L Alkaline Phosphatase 176 H (42-121) IU/L Lactate Dehydrogenase (91-225) IU/L B-Natriuretic Peptide (5-100) pg/mL Total Protein 6.8 (6.7-8.2) g/dL Albumin 3.4 (3.2-5.5) g/dL Globulin 3.4 (2.1-4.2) g/dL Albumin/Globulin Ratio 1.0 (1.0-2.2) Lipase (22-51) U/L Prostate Specific Ag (0.000-2.000) ng/mL Free PSA (0.16-2.81) ng/mL % Free PSA Calc (25-100) % Blood Type Blood Type Recheck Antibody Screen Crossmatch IS Only 04/08/19 04/08/19 04/08/19 Range/Units 05:00 00:38 00:01 WBC 4.4 L (4.8-10.8) x10^3/uL RBC 2.72 L (4.70-6.10) 10^6/uL Hgb 7.4 L (14.0-18.0) g/dL Hct 22.9 L (42.0-52.0) % MCV 84.2 (80.0-94.0) fL MCH 27.2 (27.0-31.0) pg MCHC 32.3 (32.0-36.0) g/dL RDW 14.7 (12.0-15.0) % Plt Count 62 L (130-450) 10^3/uL MPV 11.3 (7.4-11.4) fL Neut # (Auto) 2.6 (1.5-6.6) 10^3/uL Lymph # (Auto) 1.3 L (1.5-3.5) 10^3/uL Logan # (Auto) 0.4 (0.0-1.0) 10^3/uL Eos # (Auto) 0.0 (0.0-0.7) 10^3/uL Baso # (Auto) 0.0 (0.0-0.1) 10^3/uL Absolute Nucleated RBC 0.07 x10^3/uL Nucleated RBC % 1.6 /100WBC Manual Slide Review Indicated WBC Morphology NORMAL APPEARANCE (NORMAL) Platelet Estimate DECREASED (<130,000) (NORMAL) Platelet Morphology NORMAL APPEARANCE (NORMAL) RBC Morph Micro Appear 1+ POLYCHROMASIA (NORMAL) Sodium (135-145) mmol/L Potassium (3.5-5.0) mmol/L Chloride (101-111) mmol/L Carbon Dioxide (21-32) mmol/L Anion Gap (6-13) BUN (6-20) mg/dL Creatinine (0.6-1.2) mg/dL Estimated GFR (MDRD) (>89) Glucose (70-100) mg/dL Calcium (8.5-10.3) mg/dL Iron (45-182) ug/dL TIBC (250-450) ug/dL % Saturation (20-50) % Transferrin (180-329) mg/dL Total Bilirubin (0.2-1.0) mg/dL AST (10-42) IU/L ALT (10-60) IU/L Alkaline Phosphatase (42-121) IU/L Lactate Dehydrogenase 1145 H (91-225) IU/L B-Natriuretic Peptide (5-100) pg/mL Total Protein (6.7-8.2) g/dL Albumin (3.2-5.5) g/dL Globulin (2.1-4.2) g/dL Albumin/Globulin Ratio (1.0-2.2) Lipase (22-51) U/L Prostate Specific Ag (0.000-2.000) ng/mL Free PSA (0.16-2.81) ng/mL % Free PSA Calc (25-100) % Blood Type O POSITIVE Blood Type Recheck Antibody Screen NEGATIVE Crossmatch IS Only See Detail 04/08/19 04/08/19 04/08/19 Range/Units 00:01 00:01 00:01 WBC (4.8-10.8) x10^3/uL RBC (4.70-6.10) 10^6/uL Hgb (14.0-18.0) g/dL Hct (42.0-52.0) % MCV (80.0-94.0) fL MCH (27.0-31.0) pg MCHC (32.0-36.0) g/dL RDW (12.0-15.0) % Plt Count (130-450) 10^3/uL MPV (7.4-11.4) fL Neut # (Auto) (1.5-6.6) 10^3/uL Lymph # (Auto) (1.5-3.5) 10^3/uL Logan # (Auto) (0.0-1.0) 10^3/uL Eos # (Auto) (0.0-0.7) 10^3/uL Baso # (Auto) (0.0-0.1) 10^3/uL Absolute Nucleated RBC x10^3/uL Nucleated RBC % /100WBC Manual Slide Review WBC Morphology (NORMAL) Platelet Estimate (NORMAL) Platelet Morphology (NORMAL) RBC Morph Micro Appear (NORMAL) Sodium (135-145) mmol/L Potassium (3.5-5.0) mmol/L Chloride (101-111) mmol/L Carbon Dioxide (21-32) mmol/L Anion Gap (6-13) BUN (6-20) mg/dL Creatinine (0.6-1.2) mg/dL Estimated GFR (MDRD) (>89) Glucose (70-100) mg/dL Calcium (8.5-10.3) mg/dL Iron 45 (45-182) ug/dL TIBC 269 (250-450) ug/dL % Saturation 17 L (20-50) % Transferrin 192 (180-329) mg/dL Total Bilirubin (0.2-1.0) mg/dL AST (10-42) IU/L ALT (10-60) IU/L Alkaline Phosphatase (42-121) IU/L Lactate Dehydrogenase (91-225) IU/L B-Natriuretic Peptide (5-100) pg/mL Total Protein (6.7-8.2) g/dL Albumin (3.2-5.5) g/dL Globulin (2.1-4.2) g/dL Albumin/Globulin Ratio (1.0-2.2) Lipase (22-51) U/L Prostate Specific Ag 327.000 H (0.000-2.000) ng/mL Free PSA 68.810 H (0.16-2.81) ng/mL % Free PSA Calc 21 L (25-100) % Blood Type Blood Type Recheck O POSITIVE Antibody Screen Crossmatch IS Only 04/08/19 04/07/19 04/07/19 Range/Units 00:01 23:02 23:02 WBC 4.2 L (4.8-10.8) x10^3/uL RBC 2.66 L (4.70-6.10) 10^6/uL Hgb 7.4 L (14.0-18.0) g/dL Hct 22.3 L (42.0-52.0) % MCV 83.8 (80.0-94.0) fL MCH 27.8 (27.0-31.0) pg MCHC 33.2 (32.0-36.0) g/dL RDW 14.6 (12.0-15.0) % Plt Count 52 L (130-450) 10^3/uL MPV 9.2 (7.4-11.4) fL Neut # (Auto) (1.5-6.6) 10^3/uL Lymph # (Auto) (1.5-3.5) 10^3/uL Logan # (Auto) (0.0-1.0) 10^3/uL Eos # (Auto) (0.0-0.7) 10^3/uL Baso # (Auto) (0.0-0.1) 10^3/uL Absolute Nucleated RBC x10^3/uL Nucleated RBC % /100WBC Manual Slide Review WBC Morphology (NORMAL) Platelet Estimate (NORMAL) Platelet Morphology (NORMAL) RBC Morph Micro Appear (NORMAL) Sodium 133 L (135-145) mmol/L Potassium 3.8 (3.5-5.0) mmol/L Chloride 98 L (101-111) mmol/L Carbon Dioxide 21 (21-32) mmol/L Anion Gap 14.0 H (6-13) BUN 22 H (6-20) mg/dL Creatinine 0.9 (0.6-1.2) mg/dL Estimated GFR (MDRD) 87 L (>89) Glucose 114 H (70-100) mg/dL Calcium 9.0 (8.5-10.3) mg/dL Iron (45-182) ug/dL TIBC (250-450) ug/dL % Saturation (20-50) % Transferrin (180-329) mg/dL Total Bilirubin 0.9 (0.2-1.0) mg/dL AST 82 H (10-42) IU/L ALT 15 (10-60) IU/L Alkaline Phosphatase 168 H (42-121) IU/L Lactate Dehydrogenase (91-225) IU/L B-Natriuretic Peptide 17 (5-100) pg/mL Total Protein 6.8 (6.7-8.2) g/dL Albumin 3.4 (3.2-5.5) g/dL Globulin 3.4 (2.1-4.2) g/dL Albumin/Globulin Ratio 1.0 (1.0-2.2) Lipase 22 (22-51) U/L Prostate Specific Ag (0.000-2.000) ng/mL Free PSA (0.16-2.81) ng/mL % Free PSA Calc (25-100) % Blood Type Blood Type Recheck Antibody Screen Crossmatch IS Only 04/07/19 Range/Units 23:02 WBC 4.3 L (4.8-10.8) x10^3/uL RBC 2.80 L (4.70-6.10) 10^6/uL Hgb 7.7 L (14.0-18.0) g/dL Hct 23.6 L (42.0-52.0) % MCV 84.3 (80.0-94.0) fL MCH 27.5 (27.0-31.0) pg MCHC 32.6 (32.0-36.0) g/dL RDW 14.4 (12.0-15.0) % Plt Count 57 L (130-450) 10^3/uL MPV 9.9 (7.4-11.4) fL Neut # (Auto) 2.2 (1.5-6.6) 10^3/uL Lymph # (Auto) 1.5 (1.5-3.5) 10^3/uL Logan # (Auto) 0.4 (0.0-1.0) 10^3/uL Eos # (Auto) 0.0 (0.0-0.7) 10^3/uL Baso # (Auto) 0.0 (0.0-0.1) 10^3/uL Absolute Nucleated RBC 0.11 x10^3/uL Nucleated RBC % 2.6 /100WBC Manual Slide Review Indicated WBC Morphology NORMAL APPEARANCE (NORMAL) Platelet Estimate DECREASED (<130,000) (NORMAL) Platelet Morphology NORMAL APPEARANCE (NORMAL) RBC Morph Micro Appear 1+ OVALOCYTES (NORMAL) Sodium (135-145) mmol/L Potassium (3.5-5.0) mmol/L Chloride (101-111) mmol/L Carbon Dioxide (21-32) mmol/L Anion Gap (6-13) BUN (6-20) mg/dL Creatinine (0.6-1.2) mg/dL Estimated GFR (MDRD) (>89) Glucose (70-100) mg/dL Calcium (8.5-10.3) mg/dL Iron (45-182) ug/dL TIBC (250-450) ug/dL % Saturation (20-50) % Transferrin (180-329) mg/dL Total Bilirubin (0.2-1.0) mg/dL AST (10-42) IU/L ALT (10-60) IU/L Alkaline Phosphatase (42-121) IU/L Lactate Dehydrogenase (91-225) IU/L B-Natriuretic Peptide (5-100) pg/mL Total Protein (6.7-8.2) g/dL Albumin (3.2-5.5) g/dL Globulin (2.1-4.2) g/dL Albumin/Globulin Ratio (1.0-2.2) Lipase (22-51) U/L Prostate Specific Ag (0.000-2.000) ng/mL Free PSA (0.16-2.81) ng/mL % Free PSA Calc (25-100) % Blood Type Blood Type Recheck Antibody Screen Crossmatch IS Only ABX Reporting Has patient been on IV antibiotics over the past 48 hours?: No Assessment/Plan - Problem List (1) GI bleed due to NSAIDs Impression: 1. Acute symptomatic upper GI blood loss anemia with associated melanotic sto ols secondary to NSAID use it seem related to pt's NSAID taken. consulted with Dr. Santos, pt is planed to have Scopy on tomorrow H&H. it seems pt's HGB is stable and increase slightly 2. Hyponatremia secondary to dehydration continue IVF of NS, lab monitor 3. Acute mild COPD exacerbation with emphysema on CT with History of chronic tobacco use continue Duoneb plus Pulmicort twice daily. continue Incentive spirometry as patient has right lower lobe atelectasis as well. 4. New onset pancytopenia Unclear of etiology, might have underlying malignancy related bone lytic lesion or affect bone borrow function. 5. Suspected prostate cancer with Multiple sclerotic foci in the spine/ribs with associate Lymphadenopathy, concerning for metastatic disease suspected pt has prostate cancer, and metastatic to bone. pt has significant elevated PSA will order US of retropelvis Discussed with pt about his multiple bone lytic lesion and elevated PSA. advise pt followup oncologist as out-pt after d/c, pt agree the plan pain control, continue support 6. Continued Acute on chronic back pain/flank pain secondary to spine bone lytic lesion Lidoderm plus Flexeril plus oxycodone for now pain control 7. weakness secondary to symptomatic anemia GI bleeding with Melena. anemia study reveals pt is mild iron deficiency H&H monitor and will transfusion of blood as needed
[2019-04-08] MEDS: FERROUS SULFATE 325 MG TABLET PO SCH (16:57)
[2019-04-08] MEDS: SODIUM/POTASSIUM/MAG SULFATES 354 ML PREP KIT PO SCH (16:57)
[2019-04-08 17:23] LABS: HGB - HEMOGLOBIN 8.1 g/dL (14.0-18.0)
[2019-04-08] MEDS: PANTOPRAZOLE 40 MG VIAL IVP SCH (20:14)
--- NOTE | 2019-04-08 22:43 | Ultrasound Report ---
Reason: suspected prostate cancer,significant elevated PSA Procedure Date: 04/08/2019 Accession Number: [id number] / [id number] Procedure: US - Retroperitoneal CPT Code: FULL RESULT: EXAM: RENAL ULTRASOUND EXAM DATE: 04/08/2019 09:47 PM. CLINICAL HISTORY: Suspected prostate cancer,significant elevated PSA. COMPARISON: None. TECHNIQUE: Real-time scanning was performed with static images obtained. FINDINGS: Right Kidney: 12.3 x 7.1 x 6.5 cm. Normal echotexture with no stones, contour-deforming masses, or hydronephrosis. Left Kidney: 13.9 x 6.3 x 4.5 cm. Normal echotexture with no stones, contour-deforming masses, or hydronephrosis. Bladder: Bilateral jets seen. The prevoid bladder volume was 535 cc. The postvoid bladder volume was 263 cc. Other: None. IMPRESSION: Large postvoid bladder residual. Otherwise unremarkable. RADIA
[2019-04-08 23:55] LABS: HGB - HEMOGLOBIN 7.1 g/dL (14.0-18.0)
[2019-04-09] MEDS: HYDROcod/ACETAM 10 MG/325 MG TABLET PO PRN (02:53)
[2019-04-09 05:06] LABS: BASOPHILS % (AUTO) 0.3 %; EOSINOPHILS % (AUTO) 1.6 %; HGB - HEMOGLOBIN 7.1 g/dL (14.0-18.0); LYMPHOCYTES % (AUTO) 29.9 %; MEAN CORPUSCULAR HEMOGLOBIN 27.3 pg (27.0-31.0); MEAN CORPUSCULAR VOLUME 85.4 fL (80.0-94.0); MONOCYTES % (AUTO) 9.6 %; NEUTROPHILS % (AUTO) 53.5 %; PLT - PLATELET COUNT 46 10^3/uL (130-450); RED CELL DISTRIBUTION WIDTH 14.9 % (12.0-15.0); WHITE BLOOD COUNT 3.1 x10^3/uL (4.8-10.8)
[2019-04-09] MEDS: SODIUM/POTASSIUM/MAG SULFATES 354 ML PREP KIT PO SCH (05:10)
[2019-04-09 05:20] LABS: ALBUMIN 3.1 g/dL (3.2-5.5); ALBUMIN/GLOBULIN RATIO 1.1 (1.0-2.2); BILIRUBIN,TOTAL 0.5 mg/dL (0.2-1.0); CALCIUM 8.9 mg/dL (8.5-10.3); CREATININE 0.6 mg/dL (0.6-1.2); TOTAL PROTEIN 5.8 g/dL (6.7-8.2)
[2019-04-09 05:27] LABS: ABNORMAL LYMPHS % (MANUAL) 0 %
[2019-04-09 06:18] LABS: BAND NEUTROPHILS % (MANUAL) 4 %; LYMPHOCYTES # (MANUAL) 0.9 10^3/uL (1.5-3.5); LYMPHOCYTES % (MANUAL) 28 %; METAMYELOCYTES % (MANUAL) 1 %; MONOCYTES # (MANUAL) 0.1 10^3/uL (0.0-1.0); MYELOCYTES % (MANUAL) 3 %; NEUTROPHILS % (MANUAL) 59 %
[2019-04-09 06:26] LABS: PLATELET ESTIMATE, MANUAL DECREASED (<130,000) (NORMAL); PLATELET MORPHOLOGY NORMAL APPEARANCE (NORMAL); RBC MORPHOLOGY (MULTIPLE) 1+ POLYCHROMASIA (NORMAL)
[2019-04-09 06:27] LABS: DIFFERENTIAL COMMENT MANUAL DIFFERENTIAL
[2019-04-09] MEDS: DEXTROSE 5%-0.9% NACL 1,000 ML IV SCH (07:04)
--- NOTE | 2019-04-09 08:07 | PROVIDER PROGRESS NOTE ---
Subjective - Prog Note Date Prog Note Date: 04/09/19 Prog Note Time: 08:04 - Subjective Pt reports feeling: No change Subjective: No change today. Plan is for EGD and Colonoscopy today Objective - Vital Signs/Intake & Output Reviewed Vital Signs: Yes Vital Signs: Vital Signs x48h Temp Pulse Resp BP BP Pulse Ox 04/09/19 07:33 36.3 C L 86 16 138/80 H 95 04/09/19 05:06 36.4 C L 86 16 114/65 94 Intake & Output: Intake & Output 04/06/19 04/07/19 04/08/19 04/09/19 23:59 23:59 23:59 23:59 Intake Total 4463.333 100 Output Total 1775 1000 Balance 2688.333 -900 - Objective General Appearance: positive: No acute distress, Alert ENT: positive: ENT inspection nml Neck: positive: Nml inspection Respiratory: positive: No respiratory distress - Lab Results Fish Bones: 04/09/19 04:25 04/09/19 04:25 Other Labs: Lab Results x24hrs 04/09/19 04/09/19 04/08/19 Range/Units 04:25 04:25 23:40 WBC 3.1 L (4.8-10.8) x10^3/uL RBC 2.60 L (4.70-6.10) 10^6/uL Hgb 7.1 L 7.1 L (14.0-18.0) g/dL Hct 22.2 L 22.1 L (42.0-52.0) % MCV 85.4 (80.0-94.0) fL MCH 27.3 (27.0-31.0) pg MCHC 32.0 (32.0-36.0) g/dL RDW 14.9 (12.0-15.0) % Plt Count 46 L (130-450) 10^3/uL MPV 10.0 (7.4-11.4) fL Neut # (Auto) Not Reportable Lymph # (Auto) Not Reportable [place] # (Auto) Not Reportable Eos # (Auto) Not Reportable Baso # (Auto) Not Reportable Absolute Nucleated RBC Not Reportable Total Counted 100 Band Neuts % (Manual) 4 (0 - 10) % Abnorm Lymph % (Manual) 0 % Metamyelocytes % 1 H ( - 0) % Myelocytes % 3 H ( - 0) % Nucleated RBC % Not Reportable Neutrophils # (Manual) 2.0 (1.5-6.6) 10^3/uL Lymphocytes # (Manual) 0.9 L (1.5-3.5) 10^3/uL Monocytes # (Manual) 0.1 (0.0-1.0) 10^3/uL Eosinophils # (Manual) 0.0 (0-0.7) 10^3/uL Basophils # (Manual) 0.0 (0-0.1) 10^3/uL Differential Comment MANUAL DIFFERENTIAL WBC Morphology NORMAL APPEARANCE (NORMAL) Platelet Estimate DECREASED (<130,000) (NORMAL) Platelet Morphology NORMAL APPEARANCE (NORMAL) RBC Morph Micro Appear 1+ POLYCHROMASIA (NORMAL) Sodium 141 (135-145) mmol/L Potassium 4.1 (3.5-5.0) mmol/L Chloride 109 (101-111) mmol/L Carbon Dioxide 21 (21-32) mmol/L Anion Gap 11.0 (6-13) BUN 8 (6-20) mg/dL Creatinine 0.6 (0.6-1.2) mg/dL Estimated GFR (MDRD) 138 (>89) Glucose 126 H (70-100) mg/dL Calcium 8.9 (8.5-10.3) mg/dL Magnesium 2.0 (1.7-2.8) mg/dL Total Bilirubin 0.5 (0.2-1.0) mg/dL AST 55 H (10-42) IU/L ALT 12 (10-60) IU/L Alkaline Phosphatase 135 H (42-121) IU/L Total Protein 5.8 L (6.7-8.2) g/dL Albumin 3.1 L (3.2-5.5) g/dL Globulin 2.7 (2.1-4.2) g/dL Albumin/Globulin Ratio 1.1 (1.0-2.2) 04/08/19 04/08/19 Range/Units 17:19 11:18 WBC (4.8-10.8) x10^3/uL RBC (4.70-6.10) 10^6/uL Hgb 8.1 L 7.8 L (14.0-18.0) g/dL Hct 24.6 L 23.2 L (42.0-52.0) % MCV (80.0-94.0) fL MCH (27.0-31.0) pg MCHC (32.0-36.0) g/dL RDW (12.0-15.0) % Plt Count (130-450) 10^3/uL MPV (7.4-11.4) fL Neut # (Auto) Lymph # (Auto) [place] # (Auto) Eos # (Auto) Baso # (Auto) Absolute Nucleated RBC Total Counted Band Neuts % (Manual) (0 - 10) % Abnorm Lymph % (Manual) % Metamyelocytes % ( - 0) % Myelocytes % ( - 0) % Nucleated RBC % Neutrophils # (Manual) (1.5-6.6) 10^3/uL Lymphocytes # (Manual) (1.5-3.5) 10^3/uL Monocytes # (Manual) (0.0-1.0) 10^3/uL Eosinophils # (Manual) (0-0.7) 10^3/uL Basophils # (Manual) (0-0.1) 10^3/uL Differential Comment WBC Morphology (NORMAL) Platelet Estimate (NORMAL) Platelet Morphology (NORMAL) RBC Morph Micro Appear (NORMAL) Sodium (135-145) mmol/L Potassium (3.5-5.0) mmol/L Chloride (101-111) mmol/L Carbon Dioxide (21-32) mmol/L Anion Gap (6-13) BUN (6-20) mg/dL Creatinine (0.6-1.2) mg/dL Estimated GFR (MDRD) (>89) Glucose (70-100) mg/dL Calcium (8.5-10.3) mg/dL Magnesium (1.7-2.8) mg/dL Total Bilirubin (0.2-1.0) mg/dL AST (10-42) IU/L ALT (10-60) IU/L Alkaline Phosphatase (42-121) IU/L Total Protein (6.7-8.2) g/dL Albumin (3.2-5.5) g/dL Globulin (2.1-4.2) g/dL Albumin/Globulin Ratio (1.0-2.2) Assessment/Plan - Problem List (1) GI bleed due to NSAIDs Impression: Discussed transfusion with Hospitalist service. He will get a couple of units of blood this morning and we will proceed with EGD and Colonoscopy this afternoon.
[2019-04-09 09:12] LABS: INR 1.4 (0.8-1.2); PT - PROTHROMBIN TIME 15.6 secs (9.9-12.6)
[2019-04-09] MEDS: FERROUS SULFATE 325 MG TABLET PO SCH ×2 (09:24→16:15)
[2019-04-09] MEDS: LIDOCAINE PATCH 5% TOP SCH (09:24)
[2019-04-09] MEDS: PANTOPRAZOLE 40 MG VIAL IVP SCH (09:25)
[2019-04-09] MEDS: CYCLOBENZAPRINE 10 MG TABLET PO PRN (09:25)
[2019-04-09] MEDS: SODIUM CHLORIDE FLUSH 0.9% 10 ML SYRINGE IVP SCH (09:30)
[2019-04-09] MEDS: POLYETHYLENE GLYCOL 3350 17 GM PACKET PO SCH (09:30)
[2019-04-09] MEDS: BUDESONIDE 0.5 MG/2 ML NEB INH SCH (09:46)
[2019-04-09] MEDS: FORMOTEROL FUMARATE NEB 20 MCG/2 ML INH SCH (09:46)
[2019-04-09] MEDS ORDERED: LIDO GARGLE 30 ML BOTTLE ONE (11:27)
--- NOTE | 2019-04-09 11:58 | ANESTHESIA ---
Pre-Anesthesia VS, & Labs - Diagnosis Diagnosis Severe acute blood loss anemia - Procedure egd, colonoscopy Vital Signs: Temp Pulse Resp BP Pulse Ox 37.0 C 95 18 129/66 95 04/09/19 10:26 04/09/19 10:26 04/09/19 10:26 04/09/19 10:26 04/09/19 07:33 Height 6 ft Weight (kg) 86 kg Body Mass Index 25.7 - NPO >8 hours - Lab Results Current Lab Results: Laboratory Tests 04/09/19 08:50: PT 15.6 H, INR 1.4 H 04/09/19 04:25: Sodium 141, Potassium 4.1, Chloride 109, Carbon Dioxide 21, Anion Gap 11.0, BUN 8, Creatinine 0.6, Estimated GFR (MDRD) 138, Glucose 126 H, Calcium 8.9, Magnesium 2.0, Total Bilirubin 0.5, AST 55 H, ALT 12, Alkaline Phosphatase 135 H, Total Protein 5.8 L, Albumin 3.1 L, Globulin 2.7, Albumin/Globulin Ratio 1.1 04/09/19 04:25: WBC 3.1 L, RBC 2.60 L, Hgb 7.1 L, Hct 22.2 L, MCV 85.4, MCH 27.3, MCHC 32.0, RDW 14.9, Plt Count 46 L, MPV 10.0, Neut # (Auto) Not Reportable, Lymph # (Auto) Not Reportable, [place] # (Auto) Not Reportable, Eos # (Auto) Not Reportable, Baso # (Auto) Not Reportable, Absolute Nucleated RBC Not Reportable, Total Counted 100, Band Neuts % (Manual) 4, Abnorm Lymph % (Manual) 0, Metamyelocytes % 1 H, Myelocytes % 3 H, Nucleated RBC % Not Reportable, Neutrophils # (Manual) 2.0, Lymphocytes # (Manual) 0.9 L, Monocytes # (Manual) 0.1, Eosinophils # (Manual) 0.0, Basophils # (Manual) 0.0, Differential Comment MANUAL DIFFERENTIAL, WBC Morphology NORMAL APPEARANCE, Platelet Estimate DECREASED (<130,000), Platelet Morphology NORMAL APPEARANCE, RBC Morph Micro Appear 1+ POLYCHROMASIA 04/08/19 23:40: Hgb 7.1 L, Hct 22.1 L 07/01/19 17:19: Hgb 8.1 L, Hct 24.6 L 04/08/19 11:18: Hgb 7.8 L, Hct 23.2 L 04/08/19 05:00: Hgb 7.5 L, Hct 22.8 L 04/08/19 05:00: Sodium 132 L, Potassium 4.2, Chloride 100 L, Carbon Dioxide 20 L , Anion Gap 12.0, BUN 20, Creatinine 0.8, Estimated GFR (MDRD) 99, Glucose 120 H , Calcium 9.0, Total Bilirubin 0.8, AST 76 H, ALT 16, Alkaline Phosphatase 176 H , Total Protein 6.8, Albumin 3.4, Globulin 3.4, Albumin/Globulin Ratio 1.0 04/08/19 05:00: WBC 4.4 L, RBC 2.72 L, Hgb 7.4 L, Hct 22.9 L, MCV 84.2, MCH 27.2, MCHC 32.3, RDW 14.7, Plt Count 62 L, MPV 11.3, Neut # (Auto) 2.6, Lymph # (Auto) 1.3 L, [place] # (Auto) 0.4, Eos # (Auto) 0.0, Baso # (Auto) 0.0, Absolute Nucleated RBC 0.07, Nucleated RBC % 1.6, Manual Slide Review Indicated, WBC Morphology NORMAL APPEARANCE, Platelet Estimate DECREASED (<130,000), Platelet Morphology NORMAL APPEARANCE, RBC Morph Micro Appear 1+ POLYCHROMASIA 04/08/19 00:38: Blood Type O POSITIVE, Antibody Screen NEGATIVE, Crossmatch IS Only See Detail 04/08/19 00:01: Lactate Dehydrogenase 1145 H 04/08/19 00:01: Iron 45, TIBC 269, % Saturation 17 L, Transferrin 192 04/08/19 00:01: Prostate Specific Ag 327.000 H, Free PSA 68.810 H, % Free PSA Calc 21 L 04/08/19 00:01: Blood Type Recheck O POSITIVE 04/08/19 00:01: WBC 4.2 L, RBC 2.66 L, Hgb 7.4 L, Hct 22.3 L, MCV 83.8, MCH 27.8, MCHC 33.2, RDW 14.6, Plt Count 52 L, MPV 9.2 04/07/19 23:02: B-Natriuretic Peptide 17 04/07/19 23:02: Sodium 133 L, Potassium 3.8, Chloride 98 L, Carbon Dioxide 21, Anion Gap 14.0 H, BUN 22 H, Creatinine 0.9, Estimated GFR (MDRD) 87 L, Glucose 114 H, Calcium 9.0, Total Bilirubin 0.9, AST 82 H, ALT 15, Alkaline Phosphatase 168 H, Total Protein 6.8, Albumin 3.4, Globulin 3.4, Albumin/Globulin Ratio 1.0, Lipase 22 04/07/19 23:02: WBC 4.3 L, RBC 2.80 L, Hgb 7.7 L, Hct 23.6 L, MCV 84.3, MCH 27.5, MCHC 32.6, RDW 14.4, Plt Count 57 L, MPV 9.9, Neut # (Auto) 2.2, Lymph # (Auto) 1.5, [place] # (Auto) 0.4, Eos # (Auto) 0.0, Baso # (Auto) 0.0, Absolute Nucleated RBC 0.11, Nucleated RBC % 2.6, Manual Slide Review Indicated, WBC Morphology NORMAL APPEARANCE, Platelet Estimate DECREASED (<130,000), Platelet Morphology NORMAL APPEARANCE, RBC Morph Micro Appear 1+ OVALOCYTES Fish Bones: 04/09/19 04:25 04/09/19 04:25 Home Medications and Allergies Active Medications Acetaminophen (Tylenol) 650 mg PO Q4HR PRN PRN Reason: Pain 1 to 4 Hydrocodone Bitart/Acetaminophen ([place] 10 Mg/325 Mg) 1 tab PO Q4HR PRN PRN Reason: Pain 8 to 10 Last Admin: 04/09/19 02:53 Dose: 1 tab Albuterol () 2.5 mg INH RTQ4H PRN PRN Reason: Wheezing Albuterol/Ipratropium (Duoneb) 3 ml INH RTQID PRN PRN Reason: Wheezing Last Admin: 04/08/19 20:39 Dose: 3 ml Budesonide (Pulmicort) 0.5 mg INH RTBID SARY Last Admin: 04/09/19 09:46 Dose: Not Given Cyclobenzaprine HCl (Flexeril) 10 mg PO TID PRN PRN Reason: muscle spasms Last Admin: 04/09/19 09:25 Dose: 10 mg Cyclobenzaprine HCl (Flexeril) 10 mg PO TID PRN PRN Reason: Spasms Ferrous Sulfate (Feosol) 325 mg PO BIDWM [facility] Last Admin: 04/09/19 09:24 Dose: 325 mg Formoterol Fumarate (Perforomist) 20 mcg INH RTBID [facility] Last Admin: 04/09/19 09:46 Dose: Not Given Hydromorphone HCl (Dilaudid Inj Syringe) 0.5 mg IVP Q2H PRN PRN Reason: Pain 8 to 10 Last Admin: 04/08/19 15:26 Dose: 0.5 mg Dextrose/Sodium Chloride (D5ns) 1,000 mls @ 100 mls/hr IV .Q10H [facility] Last Infusion: 04/09/19 10:25 Dose: Infused Lidocaine (Lidoderm Patch) 2 patch TOP DAILY [facility] Last Admin: 04/09/19 09:24 Dose: 2 patch Multivitamins/Minerals (Theragran M) 1 tab PO DAILYWM [facility] Ondansetron HCl (Zofran Odt) 4 mg TL Q6HR PRN PRN Reason: Nausea / Vomiting Pantoprazole Sodium (Protonix) 40 mg IVP BID [facility] Last Admin: 04/09/19 09:25 Dose: 40 mg Polyethylene Glycol (Miralax) 17 gm PO DAILY [facility] Last Admin: 04/09/19 09:30 Dose: Not Given Prochlorperazine Edisylate (Compazine Inj) 10 mg IVP Q6HR PRN PRN Reason: Nausea / Vomiting Sodium Chloride (Normal Saline Flush 0.9%) 10 ml IVP PRN PRN PRN Reason: NEEDED PER PROVIDER ORDERS Last Admin: 04/08/19 20:14 Dose: 10 ml Sodium Chloride (Normal Saline Flush 0.9%) 10 ml IVP 0100,0900,1700 [facility] Last Admin: 04/09/19 09:30 Dose: 10 ml Ciprofloxacin [Cipro] 500 mg PO DAILY 02/25/19 Allergies/Adverse Reactions: Allergies Allergy/AdvReac Type Severity Reaction Status Date / Time No Known Drug Allergies Allergy Verified 05/08/14 09:42 Anes History & Medical History - Anesthetic History Anesthesia Complications: reports: No previous complications Family history of Anesthesia Complications: Denies Family history of Malignant Hyperthermia: Denies - Medical History Cardiovascular: reports: None Pulmonary: reports: None Gastrointestinal: reports: None Urinary: reports: None Neuro: reports: None Musculoskeletal: reports: None Endocrine/Autoimmune: reports: None Skin: reports: None Smoking Status: Never smoker Exam General: Alert, Oriented x3, Cooperative, No acute distress Dental: WNL Mouth Openin Fingerbreadth Neck Mobility: Normal Mallampati classification: II Thyromental Distance: greater than 6 cm Respiratory: Lungs clear, Normal breath sounds, No respiratory distress, No accessory muscle use Cardiovascular: Normal S1, Normal S2 Plan Anesthesia Type: MAC Consent for Procedure(s) Verified and Reviewed: No Code Status: Attempt Resuscitation ASA classification: 3-Severe systemic disease Is this case an emergency?: No
[2019-04-09] MEDS ORDERED: LACTATED RINGERS 1,000 ML IV ONE (12:28)
[2019-04-09] MEDS ORDERED: fentaNYL 100 MCG/2 ML VIAL IVP ONE (12:39)
[2019-04-09] MEDS ORDERED: KETAMINE 500 MG/10 ML VIAL IVP ONE (12:39)
[2019-04-09] MEDS ORDERED: PROPOFOL 200 MG/20 ML VIAL IVP ONE (12:39)
[2019-04-09 13:27] LABS: HEPATITIS A IGM NON-REACTIVE (NON-REACTIVE); HEPATITIS B CORE ANTIBODY IGM NON-REACTIVE (NON-REACTIVE); HEPATITIS B SURFACE ANTIGEN NON-REACTIVE (NON-REACTIVE); HEPATITIS C ANTIBODY NON-REACTIVE (NON-REACTIVE)
[2019-04-09 15:55] LABS: HGB - HEMOGLOBIN 8.4 g/dL (14.0-18.0)
[2019-04-09 16:36] VITALS: BP 138/70
--- NOTE | 2019-04-09 16:49 | Discharge Plan ---
Discharge Plan Problem Reviewed?: Yes Disposition: Home, Self Care Condition: Poor Prescriptions: Ferrous Sulfate 325 mg PO DAILY #30 tablet Omeprazole 40 mg PO BID #20 capsule. Sucralfate 1 gm PO TID #30 tablet Diet: Regular Activity Restrictions: Activity as Tolerated Shower Restrictions: No (fall precaution) Instruction Topics: Omeprazole tablets OTC, Sucralfate tablets Health Concerns: elevated PSA and multiple lytic bone lesions Plan of Treatment: consulted with oncologist, also discussed with PCP to see oncologist as out-pt in one to two weeks Care Goals: stabilization of your medical condition Assessment: CT of spine, chest and pelvis reveals multiple bone lytic lesion, concern for metastatic. you also has significant elevated PSA 327 Additional Instructions or Follow Up instructions: You may followup your PCP on tomorrow as you told me, followup Dr. Santos in 4-6 weeks to check healing of your gastric ulcers, followup oncologist in 1-2 weeks as out-pt. Should your symptoms return or worsen, you may present ER, call 911 or your PCP for help No Smoking: If you smoke, Please STOP! Call for help. Follow-up with: Justen Garvey MD [Primary Care Provider] -
[2019-04-09] MEDS ORDERED: MULTIVITAMIN W/MINERALS TABLET PO SCH (17:00)
--- NOTE | 2019-04-09 17:03 | DISCHARGE SUMMARY ---
"Discharge Summary Discharge Date: 04/09/19 Discharging Provider: MANCIA Primary Care Provider: Dr. Brennan Condition at Discharge: Poor Discharge Disposition: 01 Home, Self Care Discharge Facility Name: Home - DIAGNOSES Admission Diagnoses: 1. Acute symptomatic upper GI blood loss anemia with associated melanotic stools secondary to NSAID use 2. Hyponatremia secondary to dehydration 3. Acute mild COPD exacerbation with emphysema on CT 4. New onset pancytopenia 5. Suspected prostate cancer with Multiple sclerotic foci in the spine/ribs with associate Lymphadenopathy, concerning for metastatic disease 6. Continued Acute on chronic back pain/flank pain secondary to #5 7. History of chronic tobacco use 8. Generalized weakness secondary to symptomatic anemia 9. Nonalcoholic steatosis hepatitis Discharge Diagnoses with Status of Each Condition: 1. Acute symptomatic upper GI blood loss anemia with associated melanotic stools secondary to NSAID use no bleeding in hospital. pt was transfused one unit of blood. HGB is 8.4. pt had EGD and colonoscopy. Colonoscopy from Dr. Santos's verbal report is unremarkable. refer to Dr. Santos's operation report. EGD indicated 2 cm gastric erosion/ulcer stigmata of recent hemorrhage. pt is advised to hold NSAIDs and alcohol, and is prescribed Omeprazole tablets OTC, Sucralfate tablets, followup Dr. Santos in 4-6 weeks to check the ulcer healing. 2. Hyponatremia secondary to dehydration resolved 3. Acute mild COPD exacerbation with emphysema on CT with History of chronic tobacco use 97% sat on room air. pt has no difficulty for breath, cough, fever, chill. pt decline home IH treatment meds 4. New onset pancytopenia pt has no bleed, no fever/chill. Etiology is unclear. the differential could be metastatic disease of prostate cancer to bone, multiple myeloma. I talked the case with DULCE Neal, she advised to have oncologist consult for pt as out-pt. I did. pt has an appointment to see his PCP on tomorrow. Advise pt followup PCP to have oncologist referral in 1-2 weeks or as earliest as possible. 5. Suspected prostate cancer with Multiple sclerotic foci in the spine/ribs with associate Lymphadenopathy, concerning for metastatic disease pt has significant elevated PSA 327, and multiple lytic bone lesion. I talked the case with DULCE Neal, she advised to have oncologist consult for pt as out-pt. I did. pt has an appointment to see his PCP on tomorrow. Advise pt followup PCP to have oncologist referral in 1-2 weeks or as earliest as possible. 6. Continued Acute on chronic back pain/flank pain secondary to spine bone lytic lesion pain control with home regimen, hold NSAIDs, followup PCP on tomorrow advise pt for fall precaution. now pt has no any issue to walk and do ADL 7. weakness secondary to symptomatic anemia resolved. pt has no issue to walk, or no weakness reported. pt has no more GI bleed. HGB is 8.4, followup PCP and Dr. Santos for ulcer healing - HPI History of Present Illness: refer from Dr. Spann's HPI on 04/08/19 This is a pleasant 59-year-old male with Past medical history consistent of acute on chronic back pain, former smoker, lumbago for which patient sought ER physician on 02/25 with an acute lumbar strain after falling from a log and lifting lawnmower was given Robaxin as well as Percocet and has been on naproxen ever since for which he noticed persistence of his back pain and essentially had to resort to crushing Percocet and sniffing this medication for approximately 1 week. He denied any fevers, coughing, Joint swelling, maculopapular rashes, but did not mention dark stools for the last week or so. Patient had been increasing his naproxen use due to his lower back pain and flank pain. Patient had been dyspneic on exertion and short of breath for the past week as well and denied hematemesis, alcohol abuse, or bright red blood per rectum. His vital signs on presentation were hemodynamically stable however presented with a pain of 9/10. Patient's guaiac in the ED was positive and showed a hemoglobin of 7.7 g/dL for which previously he had 13.1 g/dl. In addition patient's AST was elevated at 82, ALT of 15, AP of 168 with platelets of 57, WBC 4.3; new onset p ancytopenia. In the ED patient had an EKG normal sinus rhythm at 95 bpm with LVH criteria, patient denies any IV drug use or illicit drug use or history of hepatitis C. Abnormal CT chest. For patient's back pain patient was given 1 dose of 30 mg IV Toradol, for shortness of breath he was given albuterol inhaled nebulizer, 1 dose of Robaxin 500 mg p.o. x1, oxycodone 5 mg p.o. x1, Kenalog injection IM 40 mg x 1. Patient's imaging revealed a chest x-ray which was unremarkable, CT chest did show what appeared to be emphysema due to the fact that patient had 89 to 90% O2 saturation on room air in addition patient had right lower lobe atelectasis versus infiltrate, multiple sclerotic foci in the spine and the ribs concerning for metastatic process, fatty liver with mild splenomegaly and trace pericardial effusion. - CONSULTS | PROCEDURES Consultations: Dr. Tracey Santos Procedures: EGD and colonoscopy - HOSPITAL COURSE Hospital Course: pt was admitted for weakness and GI bleed. In image study, pt was found to have multiple bone lytic lesion on spine, rub, and pelvis. pt was found to have significant elevated PSA. For GI bleed pt had EGD and colonoscopy, pt was found to have 2 cm gastric erosion/ulcer stigmata of recent hemorrhage, colonoscopy is unremarkable. pt is advised to hold NSAIDs and alcohol, and is prescribed Omeprazole tablets OTC, Sucralfate tablets, followup Dr. Santos in 4-6 weeks to check the ulcer healing. for pt's multiple bone lytic lesion on spine, rub, and pelvis, and elevated PSA, pt had oncologist consult, and is advised to followup PCP in tomorrow to have oncologist consult as well as which is earliest as possible. - ALLERGIES Allergies/Adverse Reactions: Allergies Allergy/AdvReac Type Severity Reaction Status Date / Time No Known Drug Allergies Allergy Verified 05/08/14 09:42 - MEDICATIONS Home Medications: Ambulatory Orders Medication Instructions Recorded Confirmed Ciprofloxacin [Cipro] 500 mg PO DAILY 02/25/19 02/25/19 Methocarbamol [Robaxin] 500 mg PO Q6H PRN #30 tablet 02/25/19 Oxycodone HCl/Acetaminophen 1 each PO Q6H PRN #15 tablet 02/25/19 [Percocet 5-325 mg Tablet] Ferrous Sulfate 325 mg PO DAILY #30 tablet 04/09/19 Omeprazole 40 mg PO BID #20 capsule. 04/09/19 Sucralfate 1 gm PO TID #30 tablet 04/09/19 - PHYSICAL EXAM AT DISCHARGE General Appearance: positive: No acute distress, Alert. negative: Lethargic Eyes Bilateral: positive: Normal inspection, PERRL, No lid inflammation, Conjunctivae nml ENT: positive: ENT inspection nml, Pharynx nml, No signs of dehydration. negative: Purulent nasal drainage, Pharyngeal erythema, Oral lesions Neck: positive: Nml inspection, Thyroid nml, No JVD. negative: Trachea midline, Thyromegaly, Lymphadenopathy (R), Lymphadenopathy (L), Stiff neck, Swelling/bruising, Tracheal deviation Respiratory: positive: Chest non-tender, No respiratory distress, Breath sounds nml. negative: Wheezes, Rales, Rhonchi Cardiovascular: positive: Regular rate & rhythm, No murmur, No gallop. negative: Irregularly irregular, Extrasystoles, Tachycardia, Bradycardia, JVD present, Systolic murmur, Diastolic murmur Peripheral Pulses: positive: 2+ Abdomen: positive: Non-tender, Nml bowel sounds, No distention. negative: Tenderness, Guarding, Rebound Back: positive: Nml inspection. negative: CVA tenderness (R), CVA tenderness (L) Skin: positive: Color nml, No rash, Warm, Dry. negative: Cyanosis, Diaphoresis, Pallor Extremities: positive: Non-tender, Full ROM, Nml appearance. negative: Calf tenderness, Joint swelling, Yovani's sign/cords Neurologic/Psychiatric: positive: Oriented x3, Motor nml, Sensation nml, Mood/affect nml. negative: Weakness, Sensory loss, Facial droop, Slurred/abnml speech, Depressed mood/affect - LABS Result Diagrams: 04/09/19 15:51 04/09/19 04:25 - FOLLOW UP Follow Up: You may followup your PCP on tomorrow as you told me, followup Dr. Santos in 4-6 weeks to check healing of your gastric ulcers, followup oncologist in 1-2 weeks as out-pt or as earliest as possible. Should your symptoms return or worsen, you may present ER, call 911 or your PCP for help - TIME SPENT Time Spent in Discharge (Minutes): 60"
[2019-04-10 23:41] LABS: ALBUMIN 3.3 g/dL (3.8-4.8); ALPHA 1 GLOBULIN 0.5 g/dL (0.2-0.3); BETA 1 GLOBULIN 0.4 g/dL (0.4-0.6); BETA 2 GLOBULIN 0.5 g/dL (0.2-0.5); GAMMA GLOBULIN 0.7 g/dL (0.8-1.7)
[2019-04-12 15:11] LABS: KAPPA/LAMBDA RATIO 1.73 (1.29-2.55)
[2019-04-13 14:55] LABS: ALBUMIN URINE 100 %; ALPHA 2 GLOBULINS URINE 0 %; ALPHA-1 GLOBULINS URINE 0 %; BETA GLOBULINS URINE 0 %; GAMMA GLOBULINS URINE 0 %; TOTAL VOLUME UR PEP 3000 mL; UR PROTEIN/CREATININE RATIO 244 mg/g creat (<115)
== END 2019-04-09 17:15 | disposition home or self-care (01) ==
LOC: ED 21:28 → MS3 04-08 01:01
PROVIDERS: ADMIT Family Medicine; ATTEND Nurse Practitioner Gerontology
PROC: 0DB38ZX Excision of Lower Esophagus, Via Natural or Artificial Opening Endoscopic, Diagnostic (ICD-10-PCS; 2019-04-09)
PROC: 0DJD8ZZ Inspection of Lower Intestinal Tract, Via Natural or Artificial Opening Endoscopic (ICD-10-PCS; 2019-04-09)
PROC: 0DB98ZX Excision of Duodenum, Via Natural or Artificial Opening Endoscopic, Diagnostic (ICD-10-PCS; principal; 2019-04-09 13:15)
PROC: 0DB68ZX Excision of Stomach, Via Natural or Artificial Opening Endoscopic, Diagnostic (ICD-10-PCS; 2019-04-09 13:15)
DX: K25.4 Chronic or unspecified gastric ulcer with hemorrhage (principal); T39.395A Adverse effect of other nonsteroidal anti-inflammatory drugs [NSAID], initial encounter; Y92.009 Unspecified place in unspecified non-institutional (private) residence as the place of occurrence of the external cause; D62 Acute posthemorrhagic anemia; E86.0 Dehydration; E87.1 Hypo-osmolality and hyponatremia; J43.9 Emphysema, unspecified; D61.818 Other pancytopenia; G89.29 Other chronic pain; M54.5 Low back pain; K57.30 Diverticulosis of large intestine without perforation or abscess without bleeding; K29.80 Duodenitis without bleeding; K76.0 Fatty (change of) liver, not elsewhere classified; R97.20 Elevated prostate specific antigen [PSA]; M89.9 Disorder of bone, unspecified; R59.0 Localized enlarged lymph nodes; R16.1 Splenomegaly, not elsewhere classified; Z79.1 Long term (current) use of non-steroidal anti-inflammatories (NSAID); Z79.891 Long term (current) use of opiate analgesic; Z87.891 Personal history of nicotine dependence
CPT/HCPCS: 20552; 36415; 36430; 43239; 45378; 71046; 71260; 72132; 74177; 76770; 78306; 80053; 80074; 82570; 82728; 83540; 83615; 83690; 83735; 83880; 83883; 84153; 84154; 84155; 84156; 84165; 84166; 84466; 85014; 85018; 85025; 85027; 85610; 86335; 86850; 86900; 86901; 86920; 93005; 94640; 96361; 96372; 96374; 96375; 96376; 99283; 99284; A9270; G0378; J1170; J7120; J7626; P9016; Q9967

== ENCOUNTER 2019-04-17 18:38 | Observation (INO) | payer MEDICAID ==
[2019-04-17 19:32] LABS: BASOPHILS % (AUTO) 1.1 %; EOSINOPHILS % (AUTO) 1.1 %; HGB - HEMOGLOBIN 7.4 g/dL (14.0-18.0); LYMPHOCYTES % (AUTO) 34.1 %; MEAN CORPUSCULAR HEMOGLOBIN 27.2 pg (27.0-31.0); MEAN CORPUSCULAR HGB CONC 32.7 g/dL (32.0-36.0); MEAN CORPUSCULAR VOLUME 83.1 fL (80.0-94.0); MONOCYTES % (AUTO) 13.3 %; NEUTROPHILS % (AUTO) 42.5 %; RED BLOOD COUNT 2.72 10^6/uL (4.70-6.10); RED CELL DISTRIBUTION WIDTH 15.3 % (12.0-15.0); WHITE BLOOD COUNT 4.6 x10^3/uL (4.8-10.8)
[2019-04-17 19:35] LABS: PLT - PLATELET COUNT 20 10^3/uL (130-450)
[2019-04-17 19:36] LABS: ABNORMAL LYMPHS % (MANUAL) 0 %
[2019-04-17 19:41] LABS: ALBUMIN 3.8 g/dL (3.2-5.5); ALBUMIN/GLOBULIN RATIO 1.1 (1.0-2.2); CALCIUM 9.3 mg/dL (8.5-10.3); CREATININE 0.8 mg/dL (0.6-1.2); TOTAL PROTEIN 7.2 g/dL (6.7-8.2)
[2019-04-17 19:59] LABS: BAND NEUTROPHILS % (MANUAL) 9 %; BASOPHILS % (MANUAL) 1 %; LYMPHOCYTES # (MANUAL) 1.9 10^3/uL (1.5-3.5); LYMPHOCYTES % (MANUAL) 40 %; MONOCYTES # (MANUAL) 0.2 10^3/uL (0.0-1.0); MYELOCYTES % (MANUAL) 2 %; NEUTROPHILS # (MANUAL) 2.3 10^3/uL (1.5-6.6); NEUTROPHILS % (MANUAL) 40 %
[2019-04-17 20:01] LABS: DIFFERENTIAL COMMENT MANUAL DIFFERENTIAL; PLATELET ESTIMATE, MANUAL DECREASED (<130,000) (NORMAL); PLATELET MORPHOLOGY NORMAL APPEARANCE (NORMAL)
[2019-04-17] MEDS ORDERED: ALBUTEROL NEB 2.5 MG/3 ML INH STA (20:31)
--- NOTE | 2019-04-17 20:35 | ED Physician Documentation ---
PD HPI DYSPNEA - Stated complaint Stated Complaint: SOA - Chief complaint Chief Complaint: Resp - History obtained from History obtained from: Patient - History of Present Illness Timing - onset: How many weeks ago (2) Timing - onset during: Light activity Timing - duration: Weeks (2) Timing - details: Gradual onset Inciting event(s): Other (Patient crushed black market OxyContin pills and snorted them for relief of back pain.) Improved by: Rest Worsened by: Exertion Associated symptoms: Cough. No: Fever, Wheezing, Chest pain / discomfort, Palpitations, Bilateral edema Similar symptoms before: Has not had sx before Recently seen: Emergency Dept, Admitted - Additional information Additional information: 59-year-old man who had "serious back problems" about 2 weeks ago so he took OxyContin black market and crushed it and snorted it. He says he was probably doing 4 tablets a day. Is not unusual for him to do this but he gradually started getting short of breath that prompted him to visit the emergency department. He states 5 days ago he was seen here they did "all the work- up".They subsequently got caught up in the fact that he had black stools and his breathing problem "was not on their list" resolved. He was discharged and continues to be short of breath to the point that he cannot even walk 14 feet before he has to stop and catch his breath. His son-in-law had this exact same problem after spraying pain and was given an Advair Diskus and that is with the patient is requesting today. He reports that he was a smoker but quit 10 years ago. No history of asthma has never used inhalers previously. He is developed a slight cough now but no phlegm. He was placed on a prescription for omeprazole and iron supplements and some other medication that he does not know the name of. He was anemic enough on his prior visit that he got one bag of blood. Denies chest pain, edema or history of heart disease. Denies history of DVT. He has not felt dizzy or passed out. No dysuria. Review of Systems Constitutional: denies: Fever Eyes: denies: Loss of vision Ears: reports: Reviewed and negative Nose: denies: Rhinorrhea / runny nose, Congestion Throat: denies: Sore throat Cardiac: denies: Chest pain / pressure, Palpitations Respiratory: reports: Dyspnea, Cough. denies: Wheezing GI: reports: Bloody / black stool (Recently but has now resolved.). denies: Nausea, Vomiting : denies: Dysuria Skin: denies: Rash Musculoskeletal: reports: Back pain (This was the reason he was taking the OxyContin.) Neurologic: denies: Generalized weakness, Focal weakness, Syncope, Altered mental status Endocrine: reports: Other (No history of diabetes.) PD PAST MEDICAL HISTORY - Past Medical History Past Medical History: Yes Cardiovascular: None Respiratory: None Neuro: None Endocrine/Autoimmune: None GI: GERD : None HEENT: None Psych: None Musculoskeletal: None Derm: None - Past Surgical History Past Surgical History: No - Present Medications Home Medications: Ambulatory Orders Medication Instructions Recorded Confirmed RX: Ciprofloxacin [Cipro] 500 mg PO DAILY 02/25/19 02/25/19 RX: Methocarbamol [Robaxin] 500 mg PO Q6H PRN #30 tablet 02/25/19 RX: Oxycodone HCl/Acetaminophen 1 each PO Q6H PRN #15 tablet 02/25/19 [Percocet 5-325 mg Tablet] RX: Ferrous Sulfate 325 mg PO DAILY #30 tablet 04/09/19 RX: Omeprazole 40 mg PO BID #20 capsule. 04/09/19 RX: Sucralfate 1 gm PO TID #30 tablet 04/09/19 - Allergies Allergies/Adverse Reactions: Allergies Allergy/AdvReac Type Severity Reaction Status Date / Time No Known Drug Allergies Allergy Verified 05/08/14 09:42 - Social History Does the pt smoke?: No Smoking Status: Former smoker Does the pt drink ETOH?: Yes Does the pt have substance abuse?: Yes Substance Use and Type: Prescription Pills - Immunizations Immunizations are current?: Yes - POLST Patient has POLST: No PD ED PE NORMAL - General General: Alert and oriented X 3, Other (Thin, pale) - HEENT HEENT: Atraumatic, PERRL, Moist mucous membranes - Neck Neck: Supple, no meningeal sign - Cardiac Cardiac: Other (Tachycardic without murmur) - Respiratory Respiratory: Other (He is able to speak in full sentences but does appear dyspneic. He refuses to wear his oxygen and his sats dropped to 89% on room air whenever he takes it off.) - Abdomen Abdomen: Normal bowel sounds, Soft - Derm Derm: Normal color - Extremities Extremities: No edema - Neuro Neuro: Alert and oriented X 3, automatic lehr operator 2-12 intact, No motor deficit, No sensory deficit - Psych Psych: Normal mood Results - Vitals Vitals: Vital Signs - 24 hr 04/17/19 04/17/19 04/17/19 18:42 19:38 20:22 Temperature 36.8 C Heart Rate 123 H 110 H Respiratory 20 16 Rate Blood Pressure 123/78 122/69 O2 Saturation 94 96 84 L 04/17/19 20:50 Temperature Heart Rate 100 Respiratory 10 L Rate Blood Pressure O2 Saturation Oxygen O2 Source Room air Oxygen Flow Rate 2 - EKG (time done) 2037 Rate: Rate (enter#) Rhythm: NSR QRS: Normal Ischemia: Non specific changes Compare to prior EKG: Old EKG unavailable - Labs Labs: Laboratory Tests 04/17/19 04/17/19 04/17/19 19:13 19:13 19:13 WBC 4.6 L RBC 2.72 L Hgb 7.4 L Hct 22.6 L MCV 83.1 MCH 27.2 MCHC 32.7 RDW 15.3 H Plt Count 20 L* Neut # (Auto) Not Reportable Lymph # (Auto) Not Reportable [place] # (Auto) Not Reportable Eos # (Auto) Not Reportable Baso # (Auto) Not Reportable Absolute Nucleated RBC Not Reportable Total Counted 100 Band Neuts % (Manual) 9 Reactive Lymphs % (Man) 2 Abnorm Lymph % (Manual) 0 Myelocytes % 2 H Nucleated RBC % Not Reportable Neutrophils # (Manual) 2.3 Lymphocytes # (Manual) 1.9 Monocytes # (Manual) 0.2 Eosinophils # (Manual) 0.0 Basophils # (Manual) 0.0 Nucleated RBCs 9 Differential Comment MANUAL DIFFERENTIAL Manual Slide Review Indicated WBC Morphology NORMAL APPEARANCE Platelet Estimate DECREASED (<130,000) Platelet Morphology NORMAL APPEARANCE RBC Morph Micro Appear 1+ SCHISTOCYTES D-Dimer > 1050.0 H Sodium 134 L Potassium 4.0 Chloride 102 Carbon Dioxide 19 L Anion Gap 13.0 BUN 24 H Creatinine 0.8 Estimated GFR (MDRD) 99 Glucose 114 H Calcium 9.3 Total Bilirubin 1.0 AST 96 H ALT 16 Alkaline Phosphatase 141 H Troponin I Total Protein 7.2 Albumin 3.8 Globulin 3.4 Albumin/Globulin Ratio 1.1 Lipase 40 Blood Type Antibody Screen Crossmatch IS Only 07/10/19 07/10/19 19:13 21:16 WBC RBC Hgb Hct MCV MCH MCHC RDW Plt Count Neut # (Auto) Lymph # (Auto) [place] # (Auto) Eos # (Auto) Baso # (Auto) Absolute Nucleated RBC Total Counted Band Neuts % (Manual) Reactive Lymphs % (Man) Abnorm Lymph % (Manual) Myelocytes % Nucleated RBC % Neutrophils # (Manual) Lymphocytes # (Manual) Monocytes # (Manual) Eosinophils # (Manual) Basophils # (Manual) Nucleated RBCs Differential Comment Manual Slide Review WBC Morphology Platelet Estimate Platelet Morphology RBC Morph Micro Appear D-Dimer Sodium Potassium Chloride Carbon Dioxide Anion Gap BUN Creatinine Estimated GFR (MDRD) Glucose Calcium Total Bilirubin AST ALT Alkaline Phosphatase Troponin I < 0.04 Total Protein Albumin Globulin Albumin/Globulin Ratio Lipase Blood Type O POSITIVE Antibody Screen NEGATIVE Crossmatch IS Only See Detail - Rads (name of study) CXR Radiology: EMP read indepedently (Hyperinflated lungs. Neg infiltrate), EMP read contemporaneously PD MEDICAL DECISION MAKING - ED course Complexity details: reviewed old records, reviewed results, re-evaluated patient, d/w patient, d/w tanning consultant ED course: This gentleman presented just wanting a prescription for an Advair Diskus to help his shortness of breath. I am not convinced that the etiology is from COPD. I spent a long time at the bedside talking to him about why he needed to have further tests performed. He finally consented and his hemoglobin was 7.4 with a platelet count of only 20. Of ordered 2 units of blood. His chest x-ray is clear and I have ordered a d-dimer the results were not return until the patient had already gone upstairs. D-dimer was elevated at 1050 and I did discuss with Dr. Mcghee. PE would certainly be in the differential. Any time the patient took off his oxygen his saturations would drop into the 80s. We did do a trial of an albuterol nebulizer which really did not make any difference in his lung sounds or his dyspnea. I discussed with him potentially transferring him to a facility where he could receive platelet transfusion and work-up with bone marrow biopsy. We do not have platelets immediately available in our facility. He is declined to transfer. Discussed with Dr. Mcghee and the patient will be admitted here. - Critical Care Time(min): 30 Time Includes: Direct patient care, Review records, Reassess patient, Document care, Coordinate care, Medical consult Data interpretation: Labs, Pulse ox, CXR Departure - Departure Disposition: ED Place in Observation Clinical Impression: Dyspnea Qualifiers: Dyspnea type: dyspnea on exertion Qualified Code(s): R06.09 - Other forms of dyspnea Anemia Qualifiers: Anemia type: other cause Discharge Date/Time: 04/17/19 22:30
--- NOTE | 2019-04-17 20:52 | XRAY Report ---
Reason: cough Procedure Date: 04/17/2019 Accession Number: [id number] / [id number] Procedure: XR - Chest 2 View X-Ray CPT Code: 76481 FULL RESULT: EXAM: CHEST RADIOGRAPHY EXAM DATE: 04/17/2019 08:31 PM. CLINICAL HISTORY: Cough. Shortness of breath. COMPARISON: CHEST 2 VIEW 04/07/2019 10:13 PM. TECHNIQUE: 2 views. FINDINGS: Lungs/Pleura: No focal opacities evident. No peribronchial cuffing or interstitial abnormality. No radiopaque foreign bodies. No pleural effusion. No pneumothorax. Normal volumes. Mediastinum: Heart and mediastinal contours are unremarkable. Other: Minimal right convex thoracic spine curvature. IMPRESSION: Normal 2-view chest radiography. [facility]
[2019-04-17] MEDS ORDERED: SODIUM CHLORIDE FLUSH 0.9% 10 ML SYRINGE IVP PRN (21:42)
[2019-04-18] MEDS ORDERED: SODIUM CHLORIDE 0.9% 500 ML IV ONE ×2 (00:05→12:21)
--- NOTE | 2019-04-18 01:06 | HISTORY & PHYSICAL EXAMINATION ---
Chief Complaint - Chief Complaint Chief Complaint: Dyspnea History of Present Illness - Admitted From Admitted From:: Home - History Obtained From Records Reviewed: Yes History obtained from: Patient, ER Physician, EMR - History of Present Illness HPI Comment/Other: This is a 59 year old male with a past medical history significant for gastric ulcer, panyctopenia. and suspected prostate cancer who presents to the hospital today from home for worsening dyspnea over the last few days. He admitted earlier this for similar symptoms and was found to have acute blood loss anemia secondary to a gastric ulcer for which he was treated with carafate and nexium. There was also concern for metastatic prostate cancer at that time as he was found to have multiple sclerotic bony lesions with an elevated PSA. He states that once he was transfused PRBC's, his dyspnea had resolved and he returned to his baseline. Unfortunately, his symptoms returned these past few days. He has no associated cough, fever, chills, lower extremity edema. The dyspnea only o ccurs with exertion. He does have a history of smoking but quite a few years. Denies a history of COPD. He did work with [employer] and [employer] for multiple years. He reports no signs of bleeding including, dark stools, hematuria. He does continue to endorse lower back and right hip pain. He believes he is scheduled to see an Oncologist this Monday at [place]. History - Past Medical History Cardiovascular: reports: None Respiratory: reports: None Neuro: reports: None Endocrine/Autoimmune: reports: None GI: reports: GERD : reports: None HEENT: reports: None Psych: reports: None Musculoskeletal: reports: None Derm: reports: None MRSA Hx?: No - Family & Social History Family History: Father: Diabetes, Type 2 Living arrangement: At home Social History Notes: Lived in [facility] his whole life. Worked with [employer] and [employer]. - Substance History Use: Uses substance without health or social issues: Alcohol Tobacco Details: Cigarettes (Quit 10 years ago. Smoke 1.5 packs day for 20 years.) - POLST Patient has POLST: No Meds/Allgy - Home Medications Home Medications: Ambulatory Orders Medication Instructions Recorded Confirmed Ciprofloxacin [Cipro] 500 mg PO DAILY 02/25/19 02/25/19 Methocarbamol [Robaxin] 500 mg PO Q6H PRN #30 tablet 02/25/19 Oxycodone HCl/Acetaminophen 1 each PO Q6H PRN #15 tablet 02/25/19 [Percocet 5-325 mg Tablet] Ferrous Sulfate 325 mg PO DAILY #30 tablet 04/09/19 Omeprazole 40 mg PO BID #20 capsule. 04/09/19 Sucralfate 1 gm PO TID #30 tablet 04/09/19 - Allergies Allergies/Adverse Reactions: Allergies Allergy/AdvReac Type Severity Reaction Status Date / Time No Known Drug Allergies Allergy Verified 05/08/14 09:42 Review of Systems - Constitutional Constitutional: denies: Fatigue, Fever, Chills, Weakness - Cardiovascular Cariovascular: reports: Exertional dyspnea. denies: Chest pain, Edema, Lightheadedness - Respiratory Respiratory: reports: SOB with exertion. denies: Cough, Sputum production, Wheezing, SOB at rest - Gastrointestinal Gastrointestinal: denies: Abdominal pain, Black stools, Bloody stools, Nausea, Vomiting - Genitourinary Genitourinary: denies: Dysuria, Frequency, Urgency, Hematuria - Musculoskeletal Musculoskeletal: reports: Back pain - Neurological Neurological: denies: General weakness, Dizziness - Hematologic/Lymphatic Hematologic/Lymphatic: reports: Anemia. denies: Blood clots - All Other Systems All Other Systems: reports: Reviewed and negative Prior Level of Functionality: Independent with ADL's. Exam - Vital Signs Vital Signs: Vital Signs x48h Temp Pulse Pulse Resp BP BP Pulse Ox 04/18/19 01:00 37.1 C 105 H 16 119/72 04/18/19 00:47 36.8 C 101 H 16 124/70 04/17/19 22:56 36.7 C 98 18 96 04/17/19 22:35 36.7 C 112 H 16 126/76 94 04/17/19 22:08 104 H 14 141/93 H 95 04/17/19 20:50 100 10 L 04/17/19 20:22 84 L 04/17/19 19:38 110 H 16 122/69 96 04/17/19 18:42 36.8 C 123 H 20 123/78 94 - Physical Exam General Appearance: positive: No acute distress Eyes Bilateral: positive: Normal inspection ENT: positive: ENT inspection nml Respiratory: positive: Chest non-tender, No respiratory distress, Breath sounds nml. negative: Wheezes, Rales Cardiovascular: positive: Tachycardia. negative: No murmur, Irregularly irregular Abdomen: positive: Non-tender, No distention. negative: Tenderness Skin: positive: No rash, Warm, Dry Extremities: positive: Full ROM, No pedal edema Neurologic/Psychiatric: positive: Oriented x3 Conclusion/Plan - Problem List (1) Dyspnea Conclusion/Plan: I believe that the anemia is playing a major part of his dyspnea considering he had similar symptoms in the past which improved with transfusion. His d-dimer is elevated and this is concerning considering he is tachycardic, hypoxic requiring 2L and likely has active malignancy. His Well's score is 2.5 if we assume he has active malignancy. His EKG does not show evidence of right heart strain although it does show sinus tachycardia. - Will transfuse 1U PRBC now - He did have a CT of the chest with contrast back on April 08 although it was not a PE protocol and the Radiologist did not comment on pulmonary vasculature. I attempted to reach radiology today to discuss reviewing the CT as if we can rule out a pulmonary embolism, we will not need to repeat a CT today. I did discuss with the patient that if we do indeed need to repeat imaging and he does have an embolism, he would need to be transferred to another facility as we would not be able to anticoagulate him with his thrombocytopenia and would require an IVC filter. - Supplemental O2 as needed Qualifiers: Dyspnea type: dyspnea on exertion Qualified Code(s): R06.09 - Other forms of dyspnea (2) GI bleed due to NSAIDs Conclusion/Plan: He was recently admitted for acute blood loss anemia and found to have a 2cm gastric ulcer on EGD. Has been compliant with Carafate and Nexium. No signs of active bleeding. - Continue PPI and Carafate - Diet as tolerated - Check Occult stool (3) Symptomatic anemia Conclusion/Plan: His hemoglobin has decreased to 7.4 from 8.4 on discharge April 09. Fortunately there appears to be no evidence of bleeding although with a platelet count of 20k, this will need to be closely monitored - Transfuse 1U PRBC, consent and type/screen obtain - Recheck CBC - Monitor for bleeding (4) Pancytopenia Conclusion/Plan: This may be multifactorial from the suspected malignancy with a component of blood loss anemia and possibly liver disease? He does have a history of alcohol consumption although prior CT imaging of the abdomen was not consistent with cirrhosis. - Will transfuse 1U PRBC as he is symptomatic - Transfuse platelets only if <10k or evidence of bleeding - Daily CBC - Outpatient follow up with Oncology (5) Low back pain Conclusion/Plan: Secondary to the sclerotic bony lesions due to suspected metastatic prostate cancer - Tylenol PRN Qualifiers: Chronicity: chronic Back pain laterality: right Sciatica presence: without sciatica Qualified Code(s): M54.5 - Low back pain; G89.29 - Other chronic pain (6) Bone lesion Conclusion/Plan: Suspect this is metastatic prostate cancer considering the elevated PSA and lymphadenopathy present on the CT of the abdomen - Outpatient follow up with Oncology - Lab Results Lab results reviewed: Yes Fish Bones: 04/17/19 19:13 04/17/19 19:13 - Diagnostic Imaging Results Diagnostic Imaging Results: positive: Final report reviewed Core Measures - Anticipated LOS I expect patient to be DC'd or transferred within 96 hours.: Yes - Issues Hospital Issues and Management Plan: Dyspnea and anemia requiring transfusion. Monitoring for signs of bleeding. - DVT/VTE - Prophylaxis VTE/DVT Device ordered at admit?: Yes VTE/DVT Prophylaxis med ordered at admit?: No Not Ordered - Medical Reason: Contraindicated
[2019-04-18] MEDS ORDERED: ACETAMINOPHEN 325 MG TABLET PO PRN (03:34)
[2019-04-18 05:06] LABS: EOSINOPHILS % (AUTO) 2.1 %; HGB - HEMOGLOBIN 7.5 g/dL (14.0-18.0); LYMPHOCYTES % (AUTO) 36.7 %; MEAN CORPUSCULAR HGB CONC 33.3 g/dL (32.0-36.0); MONOCYTES % (AUTO) 12.4 %; NEUTROPHILS % (AUTO) 41.9 %; RED BLOOD COUNT 2.68 10^6/uL (4.70-6.10); RED CELL DISTRIBUTION WIDTH 16.1 % (12.0-15.0); WHITE BLOOD COUNT 3.9 x10^3/uL (4.8-10.8)
[2019-04-18 05:09] LABS: CALCIUM 9.1 mg/dL (8.5-10.3); CREATININE 0.7 mg/dL (0.6-1.2); MAGNESIUM 2.1 mg/dL (1.7-2.8); PHOSPHORUS 5.6 mg/dL (2.5-4.6)
[2019-04-18 05:40] LABS: PLT - PLATELET COUNT 16 10^3/uL (130-450)
[2019-04-18 05:41] LABS: ABNORMAL LYMPHS % (MANUAL) 0 %; BAND NEUTROPHILS % (MANUAL) 0 %
[2019-04-18 05:54] LABS: INR 1.4 (0.8-1.2); PT - PROTHROMBIN TIME 15.1 secs (9.9-12.6)
[2019-04-18 06:13] LABS: EOSINOPHILS # (MANUAL) 0.1 10^3/uL (0-0.7); LYMPHOCYTES # (MANUAL) 2.1 10^3/uL (1.5-3.5); LYMPHOCYTES % (MANUAL) 53 %; METAMYELOCYTES % (MANUAL) 1 %; MONOCYTES # (MANUAL) 0.1 10^3/uL (0.0-1.0); NEUTROPHILS # (MANUAL) 1.6 10^3/uL (1.5-6.6); NEUTROPHILS % (MANUAL) 41 %; PLATELET ESTIMATE, MANUAL DECREASED (<130,000) (NORMAL); RBC MORPHOLOGY (MULTIPLE) NORMAL APPEARANCE (NORMAL)
[2019-04-18 06:14] LABS: DIFFERENTIAL COMMENT MANUAL DIFFERENTIAL
[2019-04-18] MEDS: SODIUM CHLORIDE FLUSH 0.9% 10 ML SYRINGE IVP SCH ×3 (06:23→18:46)
[2019-04-18] MEDS: SUCRALFATE 1 GM/10 ML UDC PO SCH ×4 (06:23→21:14)
[2019-04-18] MEDS: PANTOPRAZOLE 40 MG TABLET PO SCH ×3 (08:23→21:14)
[2019-04-18] MEDS: POLYETHYLENE GLYCOL 3350 17 GM PACKET PO SCH (08:24)
[2019-04-18 11:06] LABS: BASOPHILS % (AUTO) 1.1 %; EOSINOPHILS % (AUTO) 1.6 %; LYMPHOCYTES % (AUTO) 31.6 %; MEAN CORPUSCULAR HEMOGLOBIN 28.5 pg (27.0-31.0); MEAN CORPUSCULAR HGB CONC 33.8 g/dL (32.0-36.0); MEAN CORPUSCULAR VOLUME 84.3 fL (80.0-94.0); MONOCYTES % (AUTO) 13.4 %; NEUTROPHILS % (AUTO) 46.5 %; RED BLOOD COUNT 2.81 10^6/uL (4.70-6.10); RED CELL DISTRIBUTION WIDTH 15.4 % (12.0-15.0); WHITE BLOOD COUNT 3.8 x10^3/uL (4.8-10.8)
[2019-04-18 11:11] LABS: ABNORMAL LYMPHS % (MANUAL) 0 %
[2019-04-18 11:14] LABS: PLT - PLATELET COUNT 15 10^3/uL (130-450)
[2019-04-18 12:01] LABS: BAND NEUTROPHILS % (MANUAL) 14 %; LYMPHOCYTES # (MANUAL) 1.3 10^3/uL (1.5-3.5); LYMPHOCYTES % (MANUAL) 34 %; MONOCYTES # (MANUAL) 0.2 10^3/uL (0.0-1.0); MYELOCYTES % (MANUAL) 4 %; NEUTROPHILS # (MANUAL) 2.2 10^3/uL (1.5-6.6); NEUTROPHILS % (MANUAL) 43 %
[2019-04-18 12:02] LABS: PLATELET ESTIMATE, MANUAL DECREASED (<130,000) (NORMAL); PLATELET MORPHOLOGY RARE GIANT PLATELETS (NORMAL)
[2019-04-18 12:03] LABS: DIFFERENTIAL COMMENT MANUAL DIFFERENTIAL
--- NOTE | 2019-04-18 17:24 | Discharge Plan ---
Discharge Plan Problem Reviewed?: Yes Disposition: Home, Self Care Condition: Poor Prescriptions: Albuterol Sulfate [Proair Hfa Inhaler] 1 - 2 puffs INH Q4H PRN #1 inhaler PRN Reason: Shortness Of Air/Wheezing Ipratropium/Albuterol [Combivent Respimat] 4 gm IH Q6H PRN #1 aer.w.adap PRN Reason: Shortness Of Air/Wheezing Diet: Regular Activity Restrictions: Activity as Tolerated Shower Restrictions: No (fall precaution) Instruction Topics: COPD, Albuterol inhalation aerosol, Albuterol Ipratropium solution for inhalation, Bleeding Gastrointestinal, Cancer Prostate Health Concerns: GI bleed, medical compliant, COPD and O2 dependent, prostate cancer Plan of Treatment: medical compliant to the scheduled medications. Quit cigarette smoking, INH of albuterol and Duoneb, O2-dependent, and followup RT instruction for how to use O2 tank. Followup oncologist for prostate cancer and metastatic to bone. Care Goals: stabilization of multiple medical conditions Assessment: as above assessment. Additional Instructions or Follow Up instructions: you may followup your PCP in one week, followup your oncologist appointment, followup sales development representative as out-pt. Should your symptoms return or worsen, you may present ER, call 911 or your PCP for help. Follow-Up Care: [facility] No Smoking: If you smoke, Please STOP! Call for help.
[2019-04-18 17:54] LABS: BASOPHILS % (AUTO) 1.1 %; EOSINOPHILS % (AUTO) 1.6 %; HGB - HEMOGLOBIN 8.6 g/dL (14.0-18.0); LYMPHOCYTES % (AUTO) 33.2 %; MEAN CORPUSCULAR HEMOGLOBIN 27.6 pg (27.0-31.0); MEAN CORPUSCULAR HGB CONC 33.3 g/dL (32.0-36.0); MEAN CORPUSCULAR VOLUME 82.7 fL (80.0-94.0); MONOCYTES % (AUTO) 13.1 %; NEUTROPHILS % (AUTO) 44.7 %; RED BLOOD COUNT 3.12 10^6/uL (4.70-6.10); RED CELL DISTRIBUTION WIDTH 15.8 % (12.0-15.0); WHITE BLOOD COUNT 3.7 x10^3/uL (4.8-10.8)
[2019-04-18 18:00] LABS: ABSOLUTE RETICS # AUTO 0.051 10^6/uL (0.020-0.110); RED BLOOD COUNT 3.06 10^6/uL (4.70-6.10)
[2019-04-18 18:05] LABS: PLT - PLATELET COUNT 14 10^3/uL (130-450)
[2019-04-18 18:06] LABS: ABNORMAL LYMPHS % (MANUAL) 0 %
[2019-04-18 18:14] LABS: % IRON SATURATION 45 % (20-50); IRON 141 ug/dL (45-182); TOTAL IRON BINDING CAPACITY 311 ug/dL (250-450); TRANSFERRIN 222 mg/dL (180-329)
[2019-04-18 18:15] LABS: BAND NEUTROPHILS % (MANUAL) 5 %; BASOPHILS # (MANUAL) 0.1 10^3/uL (0-0.1); BASOPHILS % (MANUAL) 3 %; EOSINOPHILS # (MANUAL) 0.1 10^3/uL (0-0.7); LYMPHOCYTES % (MANUAL) 28 %; METAMYELOCYTES % (MANUAL) 1 %; MONOCYTES # (MANUAL) 0.2 10^3/uL (0.0-1.0); MYELOCYTES % (MANUAL) 1 %; NEUTROPHILS # (MANUAL) 2.2 10^3/uL (1.5-6.6); NEUTROPHILS % (MANUAL) 55 %
[2019-04-18 18:16] LABS: DIFFERENTIAL COMMENT MANUAL DIFFERENTIAL; PLATELET ESTIMATE, MANUAL DECREASED (<130,000) (NORMAL); PLATELET MORPHOLOGY NORMAL APPEARANCE (NORMAL)
--- NOTE | 2019-04-18 18:22 | PROVIDER PROGRESS NOTE ---
Subjective - Prog Note Date Prog Note Date: 04/18/19 - Subjective Pt reports feeling: Improved Subjective: pt is found to have GI bleed, occult blood test is positive. pt had EGD and colonoscopy two weeks ago which found pt had 2 cm gastric ulcer. pt report he did not take his PPI as the scheduled. Also Pt's Plt [place] found to have [id number]. With GI bleed, pt need Plt transfusion as well. Current Medications - Current Medications Current Medications: Active Medications Acetaminophen (Tylenol) 650 mg PO Q4HR PRN PRN Reason: Pain or Fever > 38C (100.4F) Albuterol/Ipratropium (Duoneb) 3 ml INH RTQID PRN PRN Reason: Shortness of Air/Wheezing Last Admin: 04/18/19 19:53 Dose: 3 ml Budesonide (Pulmicort) 0.5 mg INH RTBID SARY Last Admin: 04/19/19 08:46 Dose: 0.5 mg Cyanocobalamin (Vitamin B-12) 500 mcg PO DAILY [facility] Last Admin: 04/19/19 09:53 Dose: 500 mcg Caspofungin 70 mg/ Sodium (Chloride) 250 mls @ 250 mls/hr IV ONCE ONE Stop: 04/19/19 15:59 Last Admin: 04/19/19 14:56 Dose: 250 mls/hr Caspofungin 50 mg/ Sodium (Chloride) 100 mls @ 100 mls/hr IV DAILY SARY Pantoprazole Sodium (Protonix) 40 mg PO BID [facility] Last Admin: 04/19/19 09:18 Dose: 40 mg Polyethylene Glycol (Miralax) 17 gm PO DAILY [facility] Last Admin: 04/19/19 09:53 Dose: Not Given Sodium Chloride (Normal Saline Flush 0.9%) 10 ml IVP PRN PRN PRN Reason: NEEDED PER PROVIDER ORDERS Last Admin: 04/19/19 14:56 Dose: 20 ml Sodium Chloride (Normal Saline Flush 0.9%) 10 ml IVP 0100,0900,1700 [facility] Last Admin: 04/19/19 09:18 Dose: 10 ml Sucralfate (Carafate) 1 gm PO 0700,1100,1600,2200 [facility] Last Admin: 04/19/19 10:18 Dose: 1 gm Objective - Vital Signs/Intake & Output Reviewed Vital Signs: Yes Vital Signs: Vital Signs x48h Temp Pulse Pulse Resp BP BP Pulse Ox 04/18/19 16:37 36.9 C 95 18 126/66 04/18/19 16:00 36.9 C 102 H 20 118/68 96 04/18/19 13:42 36.7 C 100 17 110/68 04/18/19 13:28 36.7 C 98 18 123/70 04/18/19 13:16 36.9 C 98 18 130/67 04/18/19 13:11 36.9 C 98 18 130/67 95 04/18/19 11:57 37 C 100 20 133/73 H 96 Intake & Output: Intake & Output 04/15/19 04/16/19 04/17/19 04/18/19 23:59 23:59 23:59 23:59 Intake Total 1227 Balance 1227 - Objective General Appearance: positive: No acute distress, Alert. negative: Lethargic Eyes Bilateral: positive: Normal inspection, PERRL, No lid inflammation, Conjunctivae nml ENT: positive: ENT inspection nml, Pharynx nml, No signs of dehydration. negative: Purulent nasal drainage, Pharyngeal erythema, Oral lesions Neck: positive: Nml inspection, Thyroid nml, No JVD, Trachea midline. negative: Thyromegaly, Lymphadenopathy (R), Lymphadenopathy (L), Stiff neck, Swelling/bruising, Tracheal deviation Respiratory: positive: Chest non-tender, Rhonchi. negative: No respiratory distress, Wheezes, Rales Cardiovascular: positive: Regular rate & rhythm, No murmur, No gallop. negative: Irregularly irregular, Extrasystoles, Tachycardia, Bradycardia, JVD present, Systolic murmur, Diastolic murmur Peripheral Pulses: 2+ Radial (R), 2+ Radial (L), 2+ Dorsalis pedis (R), 2+ Dorsalis pedis (L) Abdomen: positive: Non-tender, No organomegaly, Nml bowel sounds, No distention. negative: Tenderness, Guarding, Rebound Back: positive: Nml inspection. negative: CVA tenderness (R), CVA tenderness (L) Skin: positive: Color nml, No rash, Warm, Dry. negative: Cyanosis, Diaphoresis, Pallor Extremities: positive: Non-tender, Full ROM, Nml appearance. negative: Calf tenderness, Joint swelling, Yovani's sign/cords Neurologic/Psychiatric: positive: Oriented x3, Motor nml, Sensation nml, Mood/affect nml. negative: Weakness, Sensory loss, Facial droop, Slurred/abnml speech, Depressed mood/affect - Lab Results Fish Bones: 04/19/19 05:20 04/19/19 05:20 Other Labs: Lab Results x24hrs 04/18/19 04/18/19 04/18/19 Range/Units 17:41 17:41 17:41 WBC (4.8-10.8) x10^3/uL RBC 3.06 L (4.70-6.10) 10^6/uL Hgb (14.0-18.0) g/dL Hct (42.0-52.0) % MCV (80.0-94.0) fL MCH (27.0-31.0) pg MCHC (32.0-36.0) g/dL RDW (12.0-15.0) % Plt Count (130-450) 10^3/uL Reticulocyte % (Auto) 1.65 (0.5-2.3) % Neut # (Auto) Lymph # (Auto) Saunders # (Auto) Eos # (Auto) Baso # (Auto) Absolute Nucleated RBC Total Counted Band Neuts % (Manual) (0 - 10) % Reactive Lymphs % (Man) % Abnorm Lymph % (Manual) % Metamyelocytes % ( - 0) % Myelocytes % ( - 0) % Nucleated RBC % Neutrophils # (Manual) (1.5-6.6) 10^3/uL Lymphocytes # (Manual) (1.5-3.5) 10^3/uL Monocytes # (Manual) (0.0-1.0) 10^3/uL Eosinophils # (Manual) (0-0.7) 10^3/uL Basophils # (Manual) (0-0.1) 10^3/uL Nucleated RBCs % Differential Comment Manual Slide Review WBC Morphology (NORMAL) Platelet Estimate (NORMAL) Platelet Morphology (NORMAL) RBC Morph Micro Appear (NORMAL) Absolute Retic 0.051 (0.020-0.110) 10^6/uL PT (9.9-12.6) secs INR (0.8-1.2) D-Dimer (200.0-255.0) ng/mL Sodium (135-145) mmol/L Potassium (3.5-5.0) mmol/L Chloride (101-111) mmol/L Carbon Dioxide (21-32) mmol/L Anion Gap (6-13) BUN (6-20) mg/dL Creatinine (0.6-1.2) mg/dL Estimated GFR (MDRD) (>89) Glucose (70-100) mg/dL Calcium (8.5-10.3) mg/dL Phosphorus (2.5-4.6) mg/dL Magnesium (1.7-2.8) mg/dL Iron 141 (45-182) ug/dL TIBC 311 (250-450) ug/dL % Saturation 45 (20-50) % Transferrin 222 (180-329) mg/dL Total Bilirubin (0.2-1.0) mg/dL AST (10-42) IU/L ALT (10-60) IU/L Alkaline Phosphatase (42-121) IU/L Lactate Dehydrogenase 1671 H (91-225) IU/L Troponin I (<0.49) ng/mL Total Protein (6.7-8.2) g/dL Albumin (3.2-5.5) g/dL Globulin (2.1-4.2) g/dL Albumin/Globulin Ratio (1.0-2.2) Lipase (22-51) U/L Stl Occult Blood (IFOB) (NEGATIVE) Blood Type Antibody Screen Crossmatch IS Only 04/18/19 04/18/19 04/18/19 Range/Units 17:41 11:30 10:42 WBC 3.7 L 3.8 L (4.8-10.8) x10^3/uL RBC 3.12 L 2.81 L (4.70-6.10) 10^6/uL Hgb 8.6 L 8.0 L (14.0-18.0) g/dL Hct 25.8 L 23.7 L (42.0-52.0) % MCV 82.7 84.3 (80.0-94.0) fL MCH 27.6 28.5 (27.0-31.0) pg MCHC 33.3 33.8 (32.0-36.0) g/dL RDW 15.8 H 15.4 H (12.0-15.0) % Plt Count 14 L* 15 L* (130-450) 10^3/uL Reticulocyte % (Auto) (0.5-2.3) % Neut # (Auto) Not Reportable Not Reportable Lymph # (Auto) Not Reportable Not Reportable Saunders # (Auto) Not Reportable Not Reportable Eos # (Auto) Not Reportable Not Reportable Baso # (Auto) Not Reportable Not Reportable Absolute Nucleated RBC Not Reportable Not Reportable Total Counted 100 100 Band Neuts % (Manual) 5 14 H (0 - 10) % Reactive Lymphs % (Man) % Abnorm Lymph % (Manual) 0 0 % Metamyelocytes % 1 H ( - 0) % Myelocytes % 1 H 4 H ( - 0) % Nucleated RBC % Not Reportable Not Reportable Neutrophils # (Manual) 2.2 2.2 (1.5-6.6) 10^3/uL Lymphocytes # (Manual) 1.0 L 1.3 L (1.5-3.5) 10^3/uL Monocytes # (Manual) 0.2 0.2 (0.0-1.0) 10^3/uL Eosinophils # (Manual) 0.1 0.0 (0-0.7) 10^3/uL Basophils # (Manual) 0.1 0.0 (0-0.1) 10^3/uL Nucleated RBCs 14 18 % Differential Comment MANUAL DIFFERENTIAL MANUAL DIFFERENTIAL Manual Slide Review Indicated Indicated WBC Morphology NORMAL APPEARANCE (NORMAL) Platelet Estimate DECREASED (<130,000) DECREASED (<130,000) (NORMAL) Platelet Morphology NORMAL APPEARANCE RARE GIANT PLATELETS (NORMAL) RBC Morph Micro Appear 1+ POLYCHROMASIA 2+ SCHISTOCYTES (NORMAL) Absolute Retic (0.020-0.110) 10^6/uL PT (9.9-12.6) secs INR (0.8-1.2) D-Dimer (200.0-255.0) ng/mL Sodium (135-145) mmol/L Potassium (3.5-5.0) mmol/L Chloride (101-111) mmol/L Carbon Dioxide (21-32) mmol/L Anion Gap (6-13) BUN (6-20) mg/dL Creatinine (0.6-1.2) mg/dL Estimated GFR (MDRD) (>89) Glucose (70-100) mg/dL Calcium (8.5-10.3) mg/dL Phosphorus (2.5-4.6) mg/dL Magnesium (1.7-2.8) mg/dL Iron (45-182) ug/dL TIBC (250-450) ug/dL % Saturation (20-50) % Transferrin (180-329) mg/dL Total Bilirubin (0.2-1.0) mg/dL AST (10-42) IU/L ALT (10-60) IU/L Alkaline Phosphatase (42-121) IU/L Lactate Dehydrogenase (91-225) IU/L Troponin I (<0.49) ng/mL Total Protein (6.7-8.2) g/dL Albumin (3.2-5.5) g/dL Globulin (2.1-4.2) g/dL Albumin/Globulin Ratio (1.0-2.2) Lipase (22-51) U/L Stl Occult Blood (IFOB) POSITIVE A (NEGATIVE) Blood Type Antibody Screen Crossmatch IS Only 04/18/19 04/18/19 04/18/19 Range/Units 05:40 04:45 04:45 WBC 3.9 L (4.8-10.8) x10^3/uL RBC 2.68 L (4.70-6.10) 10^6/uL Hgb 7.5 L (14.0-18.0) g/dL Hct 22.5 L (42.0-52.0) % MCV 84.0 (80.0-94.0) fL MCH 28.0 (27.0-31.0) pg MCHC 33.3 (32.0-36.0) g/dL RDW 16.1 H (12.0-15.0) % Plt Count 16 L* (130-450) 10^3/uL Reticulocyte % (Auto) (0.5-2.3) % Neut # (Auto) Not Reportable Lymph # (Auto) Not Reportable Saunders # (Auto) Not Reportable Eos # (Auto) Not Reportable Baso # (Auto) Not Reportable Absolute Nucleated RBC Not Reportable Total Counted 100 Band Neuts % (Manual) 0 (0 - 10) % Reactive Lymphs % (Man) % Abnorm Lymph % (Manual) 0 % Metamyelocytes % 1 H ( - 0) % Myelocytes % ( - 0) % Nucleated RBC % Not Reportable Neutrophils # (Manual) 1.6 (1.5-6.6) 10^3/uL Lymphocytes # (Manual) 2.1 (1.5-3.5) 10^3/uL Monocytes # (Manual) 0.1 (0.0-1.0) 10^3/uL Eosinophils # (Manual) 0.1 (0-0.7) 10^3/uL Basophils # (Manual) 0.0 (0-0.1) 10^3/uL Nucleated RBCs 3 % Differential Comment MANUAL DIFFERENTIAL Manual Slide Review WBC Morphology (NORMAL) Platelet Estimate DECREASED (<130,000) (NORMAL) Platelet Morphology (NORMAL) RBC Morph Micro Appear NORMAL APPEARANCE (NORMAL) Absolute Retic (0.020-0.110) 10^6/uL PT 15.1 H (9.9-12.6) secs INR 1.4 H (0.8-1.2) D-Dimer (200.0-255.0) ng/mL Sodium 137 (135-145) mmol/L Potassium 3.9 (3.5-5.0) mmol/L Chloride 104 (101-111) mmol/L Carbon Dioxide 19 L (21-32) mmol/L Anion Gap 14.0 H (6-13) BUN 19 (6-20) mg/dL Creatinine 0.7 (0.6-1.2) mg/dL Estimated GFR (MDRD) 116 (>89) Glucose 118 H (70-100) mg/dL Calcium 9.1 (8.5-10.3) mg/dL Phosphorus 5.6 H (2.5-4.6) mg/dL Magnesium 2.1 (1.7-2.8) mg/dL Iron (45-182) ug/dL TIBC (250-450) ug/dL % Saturation (20-50) % Transferrin (180-329) mg/dL Total Bilirubin (0.2-1.0) mg/dL AST (10-42) IU/L ALT (10-60) IU/L Alkaline Phosphatase (42-121) IU/L Lactate Dehydrogenase (91-225) IU/L Troponin I (<0.49) ng/mL Total Protein (6.7-8.2) g/dL Albumin (3.2-5.5) g/dL Globulin (2.1-4.2) g/dL Albumin/Globulin Ratio (1.0-2.2) Lipase (22-51) U/L Stl Occult Blood (IFOB) (NEGATIVE) Blood Type Antibody Screen Crossmatch IS Only 04/17/19 04/17/19 04/17/19 Range/Units 21:16 19:13 19:13 WBC (4.8-10.8) x10^3/uL RBC (4.70-6.10) 10^6/uL Hgb (14.0-18.0) g/dL Hct (42.0-52.0) % MCV (80.0-94.0) fL MCH (27.0-31.0) pg MCHC (32.0-36.0) g/dL RDW (12.0-15.0) % Plt Count (130-450) 10^3/uL Reticulocyte % (Auto) (0.5-2.3) % Neut # (Auto) Lymph # (Auto) Saunders # (Auto) Eos # (Auto) Baso # (Auto) Absolute Nucleated RBC Total Counted Band Neuts % (Manual) (0 - 10) % Reactive Lymphs % (Man) % Abnorm Lymph % (Manual) % Metamyelocytes % ( - 0) % Myelocytes % ( - 0) % Nucleated RBC % Neutrophils # (Manual) (1.5-6.6) 10^3/uL Lymphocytes # (Manual) (1.5-3.5) 10^3/uL Monocytes # (Manual) (0.0-1.0) 10^3/uL Eosinophils # (Manual) (0-0.7) 10^3/uL Basophils # (Manual) (0-0.1) 10^3/uL Nucleated RBCs % Differential Comment Manual Slide Review WBC Morphology (NORMAL) Platelet Estimate (NORMAL) Platelet Morphology (NORMAL) RBC Morph Micro Appear (NORMAL) Absolute Retic (0.020-0.110) 10^6/uL PT (9.9-12.6) secs INR (0.8-1.2) D-Dimer > 1050.0 H (200.0-255.0) ng/mL Sodium (135-145) mmol/L Potassium (3.5-5.0) mmol/L Chloride (101-111) mmol/L Carbon Dioxide (21-32) mmol/L Anion Gap (6-13) BUN (6-20) mg/dL Creatinine (0.6-1.2) mg/dL Estimated GFR (MDRD) (>89) Glucose (70-100) mg/dL Calcium (8.5-10.3) mg/dL Phosphorus (2.5-4.6) mg/dL Magnesium (1.7-2.8) mg/dL Iron (45-182) ug/dL TIBC (250-450) ug/dL % Saturation (20-50) % Transferrin (180-329) mg/dL Total Bilirubin (0.2-1.0) mg/dL AST (10-42) IU/L ALT (10-60) IU/L Alkaline Phosphatase (42-121) IU/L Lactate Dehydrogenase (91-225) IU/L Troponin I < 0.04 (<0.49) ng/mL Total Protein (6.7-8.2) g/dL Albumin (3.2-5.5) g/dL Globulin (2.1-4.2) g/dL Albumin/Globulin Ratio (1.0-2.2) Lipase (22-51) U/L Stl Occult Blood (IFOB) (NEGATIVE) Blood Type O POSITIVE Antibody Screen NEGATIVE Crossmatch IS Only See Detail 04/17/19 04/17/19 Range/Units 19:13 19:13 WBC 4.6 L (4.8-10.8) x10^3/uL RBC 2.72 L (4.70-6.10) 10^6/uL Hgb 7.4 L (14.0-18.0) g/dL Hct 22.6 L (42.0-52.0) % MCV 83.1 (80.0-94.0) fL MCH 27.2 (27.0-31.0) pg MCHC 32.7 (32.0-36.0) g/dL RDW 15.3 H (12.0-15.0) % Plt Count 20 L* (130-450) 10^3/uL Reticulocyte % (Auto) (0.5-2.3) % Neut # (Auto) Not Reportable Lymph # (Auto) Not Reportable Saunders # (Auto) Not Reportable Eos # (Auto) Not Reportable Baso # (Auto) Not Reportable Absolute Nucleated RBC Not Reportable Total Counted 100 Band Neuts % (Manual) 9 (0 - 10) % Reactive Lymphs % (Man) 2 % Abnorm Lymph % (Manual) 0 % Metamyelocytes % ( - 0) % Myelocytes % 2 H ( - 0) % Nucleated RBC % Not Reportable Neutrophils # (Manual) 2.3 (1.5-6.6) 10^3/uL Lymphocytes # (Manual) 1.9 (1.5-3.5) 10^3/uL Monocytes # (Manual) 0.2 (0.0-1.0) 10^3/uL Eosinophils # (Manual) 0.0 (0-0.7) 10^3/uL Basophils # (Manual) 0.0 (0-0.1) 10^3/uL Nucleated RBCs 9 % Differential Comment MANUAL DIFFERENTIAL Manual Slide Review Indicated WBC Morphology NORMAL APPEARANCE (NORMAL) Platelet Estimate DECREASED (<130,000) (NORMAL) Platelet Morphology NORMAL APPEARANCE (NORMAL) RBC Morph Micro Appear 1+ SCHISTOCYTES (NORMAL) Absolute Retic (0.020-0.110) 10^6/uL PT (9.9-12.6) secs INR (0.8-1.2) D-Dimer (200.0-255.0) ng/mL Sodium 134 L (135-145) mmol/L Potassium 4.0 (3.5-5.0) mmol/L Chloride 102 (101-111) mmol/L Carbon Dioxide 19 L (21-32) mmol/L Anion Gap 13.0 (6-13) BUN 24 H (6-20) mg/dL Creatinine 0.8 (0.6-1.2) mg/dL Estimated GFR (MDRD) 99 (>89) Glucose 114 H (70-100) mg/dL Calcium 9.3 (8.5-10.3) mg/dL Phosphorus (2.5-4.6) mg/dL Magnesium (1.7-2.8) mg/dL Iron (45-182) ug/dL TIBC (250-450) ug/dL % Saturation (20-50) % Transferrin (180-329) mg/dL Total Bilirubin 1.0 (0.2-1.0) mg/dL AST 96 H (10-42) IU/L ALT 16 (10-60) IU/L Alkaline Phosphatase 141 H (42-121) IU/L Lactate Dehydrogenase (91-225) IU/L Troponin I (<0.49) ng/mL Total Protein 7.2 (6.7-8.2) g/dL Albumin 3.8 (3.2-5.5) g/dL Globulin 3.4 (2.1-4.2) g/dL Albumin/Globulin Ratio 1.1 (1.0-2.2) Lipase 40 (22-51) U/L Stl Occult Blood (IFOB) (NEGATIVE) Blood Type Antibody Screen Crossmatch IS Only ABX Reporting Has patient been on IV antibiotics over the past 48 hours?: No Assessment/Plan - Problem List (1) Dyspnea Impression: 04/18 pt continue to have symptoms of dyspnea. pt's HGB is 7.4. it can cause dyspnea but we also closely monitor pt to see another reason to cause pt has dyspnea. pt report he begin dyspnea about 2 months ago, gradually worsening. pt report hx of smoker. COPD is also another differential diagnosis transfusion of two unit of blood, and H&H albuterol and Duoneb PRN Supplemental O2 as needed will consider CTA if pt continue to have symptoms, (2) GI bleed Conclusion/Plan: pt still has GI bleed, with positive for Occult stool test. pt did not take PPI as the scheduled. pt denies he take NSAIDs now H&H monitor, consult with GI bleed - Continue PPI and Carafate (3) Symptomatic anemia Conclusion/Plan: pt present dyspnea when he walks. HGB is 7.4. will transfusion of two unit of blood - Recheck CBC - Monitor for bleeding (4) Pancytopenia Conclusion/Plan: it might be from bone [place] suppression from multiple bone lesions, and sign ificantly [place] [address] [place]. Transfuse platelets because pt has GI bleed transfusion of two unit of RBC as well (5) Low back pain Conclusion/Plan: Secondary to the sclerotic bony lesions due to suspected metastatic prostate cancer continue pain control (6) Bone lesion Conclusion/Plan: Suspect this is metastatic prostate cancer considering the elevated PSA and lymphadenopathy present on the CT of the abdomen Outpatient follow up with Oncology (7) medical non-compliant pt report he only took 20 mg PPI daily because he saw lots of side effect of PPI from online, so he reduce his PPI by himself advise pt took meds as scheduled Qualifiers: Dyspnea type: dyspnea on exertion Qualified Code(s): R06.09 - Other forms of dyspnea
[2019-04-18] MEDS: IPRATROPIUM/ALBUTEROL 3 ML NEB INH PRN (19:53)
[2019-04-18] MEDS: BUDESONIDE 0.5 MG/2 ML NEB INH SCH (19:53)
[2019-04-19] MEDS: SODIUM CHLORIDE FLUSH 0.9% 10 ML SYRINGE IVP SCH ×3 (00:41→16:00)
[2019-04-19 05:44] LABS: BASOPHILS % (AUTO) 1.2 %; EOSINOPHILS % (AUTO) 2.4 %; HGB - HEMOGLOBIN 8.1 g/dL (14.0-18.0); LYMPHOCYTES % (AUTO) 39.5 %; MEAN CORPUSCULAR HEMOGLOBIN 27.2 pg (27.0-31.0); MEAN CORPUSCULAR HGB CONC 32.9 g/dL (32.0-36.0); MEAN CORPUSCULAR VOLUME 82.6 fL (80.0-94.0); MEAN PLATELET VOLUME 10.7 fL (7.4-11.4); MONOCYTES % (AUTO) 8.1 %; NEUTROPHILS % (AUTO) 42.4 %; PLT - PLATELET COUNT 38 10^3/uL (130-450); RED BLOOD COUNT 2.98 10^6/uL (4.70-6.10); RED CELL DISTRIBUTION WIDTH 16.1 % (12.0-15.0); WHITE BLOOD COUNT 4.2 x10^3/uL (4.8-10.8)
[2019-04-19 05:53] LABS: ALBUMIN 3.6 g/dL (3.2-5.5); ALBUMIN/GLOBULIN RATIO 1.1 (1.0-2.2); BILIRUBIN,TOTAL 1.4 mg/dL (0.2-1.0); CALCIUM 9.3 mg/dL (8.5-10.3); CREATININE 0.7 mg/dL (0.6-1.2); TOTAL PROTEIN 6.8 g/dL (6.7-8.2)
[2019-04-19 05:56] LABS: ABNORMAL LYMPHS % (MANUAL) 0 %
[2019-04-19] MEDS: SUCRALFATE 1 GM/10 ML UDC PO SCH ×4 (06:07→21:24)
[2019-04-19 06:10] LABS: BAND NEUTROPHILS % (MANUAL) 6 %; EOSINOPHILS # (MANUAL) 0.1 10^3/uL (0-0.7); LYMPHOCYTES # (MANUAL) 1.8 10^3/uL (1.5-3.5); LYMPHOCYTES % (MANUAL) 43 %; METAMYELOCYTES % (MANUAL) 1 %; MONOCYTES # (MANUAL) 0.5 10^3/uL (0.0-1.0); MYELOCYTES % (MANUAL) 1 %; NEUTROPHILS # (MANUAL) 1.8 10^3/uL (1.5-6.6); NEUTROPHILS % (MANUAL) 36 %
[2019-04-19 06:11] LABS: DIFFERENTIAL COMMENT MANUAL DIFFERENTIAL; PLATELET ESTIMATE, MANUAL DECREASED (<130,000) (NORMAL); RBC MORPHOLOGY (MULTIPLE) 1+ POLYCHROMASIA (NORMAL)
[2019-04-19] MEDS: BUDESONIDE 0.5 MG/2 ML NEB INH SCH ×2 (08:46→18:06)
[2019-04-19] MEDS ORDERED: CYANOCOBALAMIN 500 MCG TABLET PO SCH (09:00)
[2019-04-19] MEDS: PANTOPRAZOLE 40 MG TABLET PO SCH ×2 (09:18→21:24)
[2019-04-19] MEDS: POLYETHYLENE GLYCOL 3350 17 GM PACKET PO SCH (09:53)
[2019-04-19] MEDS ORDERED: IOVERSOL 320 100 ML VIAL IVP ONE ×2 (12:34→13:03)
--- NOTE | 2019-04-19 13:34 | CT Report ---
Reason: SOB Procedure Date: 04/19/2019 Accession Number: [id number] / [id number] Procedure: CT - ANGIO CHEST W/WO CPT Code: FULL RESULT: EXAM: CT ANGIOGRAM CHEST EXAM DATE: 04/19/2019 12:57 PM. CLINICAL HISTORY: SOB. COMPARISON: CHEST W/ 04/07/2019 11:56 PM CHEST 2 VIEW 04/17/2019 7:18 PM. TECHNIQUE: Routine helical imaging was performed through the chest in the pulmonary arterial phase. IV Contrast: OPTI 320 80ML. Reconstructions: Coronal 3-D MIP reconstructions.Sagittal and coronal. In accordance with CT protocol optimization, one or more of the following dose reduction techniques were utilized for this exam: automated exposure control, adjustment of mA and/or KV based on patient size, or use of iterative reconstructive technique. FINDINGS: Pulmonary Arteries: Diagnostic quality: Adequate through the segmental arteries. No evidence for acute or chronic pulmonary emboli. RV/LV is within normal limits. There is no interventricular septal bowing. There is no reflux of contrast material in the IVC. Lungs/Pleura: There is interval development of innumerable relatively small groundglass opacities throughout both lungs, some of which have a tiny central irregular nodular density (with a halo-sign appearance) and some of which have a perivascular distribution. Some of the foci are confluent particularly in the posterior segment right upper lobe. There is mild paraseptal emphysema mainly in the upper lobes, as before. There is no generalized interstitial abnormality. No central airway obstruction is seen, although there is slight generalized bronchial wall thickening bilaterally. There is no pleural fluid or pneumothorax. Mediastinum: The heart size is normal. There is mild calcification in the left anterior descending coronary artery. There are shotty mediastinal lymph nodes, as before. Esophagus and thyroid gland are unremarkable. Thoracic Aorta: Mild calcification of the normal caliber thoracic aorta. No dissection. Upper Abdomen: Unremarkable. Other: As before, there are innumerable small to moderate sized sclerotic nodules throughout the visualized skeleton. IMPRESSION: 1. There is no pulmonary embolism. 2. Newly developed multifocal groundglass opacities throughout both lungs often with a halo sign with central nodule or vessel with more confluent groundglass opacities in the posterior segment right upper lobe. The findings suggest fungal infection or septic emboli. Rarely, hemorrhagic pulmonary metastasis can have this appearance. 3. As before, innumerable sclerotic bone lesions suggesting metastatic disease. RADIA
[2019-04-19] MEDS ORDERED: CASPOFUNGIN 70 MG in SODIUM CHLORIDE 0.9% 250 ML IV ONE (15:00)
[2019-04-19] MEDS: IPRATROPIUM/ALBUTEROL 3 ML NEB INH PRN (18:06)
--- NOTE | 2019-04-19 18:32 | PROVIDER PROGRESS NOTE ---
Subjective - Prog Note Date Prog Note Date: 04/19/19 Objective - Vital Signs/Intake & Output Vital Signs: Vital Signs x48h Temp Pulse Pulse Resp BP Pulse Ox 04/19/19 18:05 112 H 16 04/19/19 16:16 36.8 C 100 18 130/70 91 L Intake & Output: Intake & Output 04/16/19 04/17/19 04/18/19 04/19/19 23:59 23:59 23:59 23:59 Intake Total 1777 930 Balance 1777 930 - Lab Results Fish Bones: 04/19/19 05:20 04/19/19 05:20 Other Labs: Lab Results x24hrs 04/19/19 04/19/19 04/18/19 Range/Units 05:20 05:20 17:41 WBC 4.2 L (4.8-10.8) x10^3/uL RBC 2.98 L (4.70-6.10) 10^6/uL Hgb 8.1 L (14.0-18.0) g/dL Hct 24.6 L (42.0-52.0) % MCV 82.6 (80.0-94.0) fL MCH 27.2 (27.0-31.0) pg MCHC 32.9 (32.0-36.0) g/dL RDW 16.1 H (12.0-15.0) % Plt Count 38 L (130-450) 10^3/uL MPV 10.7 (7.4-11.4) fL Neut # (Auto) Not Reportable Lymph # (Auto) Not Reportable [place] # (Auto) Not Reportable Eos # (Auto) Not Reportable Baso # (Auto) Not Reportable Absolute Nucleated RBC Not Reportable Total Counted 100 Band Neuts % (Manual) 6 (0 - 10) % Abnorm Lymph % (Manual) 0 % Metamyelocytes % 1 H ( - 0) % Myelocytes % 1 H ( - 0) % Nucleated RBC % Not Reportable Neutrophils # (Manual) 1.8 (1.5-6.6) 10^3/uL Lymphocytes # (Manual) 1.8 (1.5-3.5) 10^3/uL Monocytes # (Manual) 0.5 (0.0-1.0) 10^3/uL Eosinophils # (Manual) 0.1 (0-0.7) 10^3/uL Basophils # (Manual) 0.0 (0-0.1) 10^3/uL Nucleated RBCs 9 % Differential Comment MANUAL DIFFERENTIAL Platelet Estimate DECREASED (<130,000) (NORMAL) RBC Morph Micro Appear 1+ POLYCHROMASIA (NORMAL) Sodium 139 (135-145) mmol/L Potassium 4.2 (3.5-5.0) mmol/L Chloride 105 (101-111) mmol/L Carbon Dioxide 20 L (21-32) mmol/L Anion Gap 14.0 H (6-13) BUN 19 (6-20) mg/dL Creatinine 0.7 (0.6-1.2) mg/dL Estimated GFR (MDRD) 116 (>89) Glucose 106 H (70-100) mg/dL Calcium 9.3 (8.5-10.3) mg/dL Ferritin 2859.0 H (23.9-336.2) ng/mL Total Bilirubin 1.4 H (0.2-1.0) mg/dL AST 101 H (10-42) IU/L ALT 15 (10-60) IU/L Alkaline Phosphatase 126 H (42-121) IU/L Total Protein 6.8 (6.7-8.2) g/dL Albumin 3.6 (3.2-5.5) g/dL Globulin 3.2 (2.1-4.2) g/dL Albumin/Globulin Ratio 1.1 (1.0-2.2) Assessment/Plan - Problem List (1) Dyspnea Qualifiers: Dyspnea type: dyspnea on exertion Qualified Code(s): R06.09 - Other forms of dyspnea
[2019-04-19 20:09] LABS: BASOPHILS % (AUTO) 0.6 %; EOSINOPHILS % (AUTO) 1.7 %; HGB - HEMOGLOBIN 7.7 g/dL (14.0-18.0); LYMPHOCYTES % (AUTO) 32.8 %; MEAN CORPUSCULAR HEMOGLOBIN 26.9 pg (27.0-31.0); MEAN CORPUSCULAR HGB CONC 32.2 g/dL (32.0-36.0); MEAN CORPUSCULAR VOLUME 83.6 fL (80.0-94.0); MONOCYTES % (AUTO) 7.5 %; NEUTROPHILS % (AUTO) 52.2 %; RED BLOOD COUNT 2.86 10^6/uL (4.70-6.10); RED CELL DISTRIBUTION WIDTH 16.2 % (12.0-15.0); WHITE BLOOD COUNT 3.5 x10^3/uL (4.8-10.8)
[2019-04-19 20:16] LABS: PLT - PLATELET COUNT 22 10^3/uL (130-450)
[2019-04-19 20:17] LABS: ABNORMAL LYMPHS % (MANUAL) 0 %
[2019-04-19 20:48] LABS: BAND NEUTROPHILS % (MANUAL) 11 %; EOSINOPHILS # (MANUAL) 0.1 10^3/uL (0-0.7); LYMPHOCYTES # (MANUAL) 1.3 10^3/uL (1.5-3.5); LYMPHOCYTES % (MANUAL) 34 %; MONOCYTES # (MANUAL) 0.4 10^3/uL (0.0-1.0); NEUTROPHILS # (MANUAL) 1.7 10^3/uL (1.5-6.6); NEUTROPHILS % (MANUAL) 37 %
[2019-04-19 20:49] LABS: DIFFERENTIAL COMMENT MANUAL DIFFERENTIAL; PLATELET ESTIMATE, MANUAL DECREASED (<130,000) (NORMAL); PLATELET MORPHOLOGY NORMAL APPEARANCE (NORMAL)
[2019-04-20 01:42] VITALS: BP 110/65
--- NOTE | 2019-04-20 07:24 | DISCHARGE SUMMARY ---
"Discharge Summary Discharge Date: 04/20/19 Discharging Provider: MANCIA Primary Care Provider: Dr. Cali Og Condition at Discharge: Poor Discharge Disposition: 02 Transfer Acute Care Hosp Discharge Facility Name: [facility] - DIAGNOSES Admission Diagnoses: (1) Dyspnea (2) GI bleed due to NSAIDs (3) Symptomatic anemia (4) Pancytopenia (5) Low back pain (6) Bone lesion Discharge Diagnoses with Status of Each Condition: (1) Dyspnea pt require 7 liter of O2 to remain 90% sat. HGB is 7.7 after two unit of blood. occult blood test is still positive. Pt had EGD and colonoscopy about two weeks, he was found to have 2 cm gastric ulcer. but pt was medical non-compliant his medication PPI, also pt has pancytopenia with Plt 22 after transfusion of once of 4 unit of plt. CTA of chest reveal no PE, but with multifocal groundglass opacities in both lung. the finding suggest fungal infection or septic emboli, rarely, hemorrhagic pulmonary metastasis can have this appearance. I reported all above condition to [facility] pt was transferred to [facility] for high level of care (2) GI bleed Conclusion/Plan: pt did not compliance PPI as the schedule. pt still has positive occult stool. But pt has also thrombocytopenia, PLT is 14,000. pt had two unit of blood transfusion, and 4 unit of plt transfusion. reported to [facility] all above medical conditions also consulted with Dr. Santos for GI bleeding (3) Symptomatic anemia Conclusion/Plan: pt had two unit of blood. Pt's HGB was 7.7 after transfusion (4) Pancytopenia Conclusion/Plan: it might be from bone mechoopda suppression from multiple bone lesions, and significantly elevated PSA, possible prostate CA which was found about two weeks. pt report he will see his oncologist on this week but since he is the hospital, he still did [place] [id number] today. Transfuse platelets because pt has GI bleed transfusion of two unit of RBC as well reported to and transfer to [facility] (5) Low back pain Conclusion/Plan: Secondary to the sclerotic bony lesions due to suspected metastatic prostate cancer continue pain control (6) Bone lesion Conclusion/Plan: Suspect this is metastatic prostate cancer considering the elevated PSA and lymphadenopathy present on the CT of the abdomen Outpatient follow up with Oncology (7) medical non-compliant pt report he only took 20 mg PPI because he saw lots of side effect of PPI from online, so he reduce his PPI by himself advise pt took meds as scheduled (8) respiratory failure with hypoxia pt require 7 liter of O2 to remain 90% sats. CTA of chest reveal no PE, but with multifocal groundglass opacities in both lung. the finding suggest fungal infection or septic emboli, rarely, hemorrhagic pulmonary metastasis can have this appearance. I reported all above condition to [facility] pt was transferred to [facility] for high level of care - [facility] History of Present Illness: refer from Dr. Thomas's HPI on 04/18/19 This is a 59 year old male with a past medical history significant for gastric ulcer, panyctopenia. and suspected prostate cancer who presents to the hospital today from home for worsening dyspnea over the last few days. He admitted earlier this for similar symptoms and was found to have acute blood loss anemia secondary to a gastric ulcer for which he was treated with carafate and nexium. There was also concern for metastatic prostate cancer at that time as he was found to have multiple sclerotic bony lesions with an elevated PSA. He states that once he was transfused PRBC's, his dyspnea had resolved and he returned to his baseline. Unfortunately, his symptoms returned these past few days. He has no associated cough, fever, chills, lower extremity edema. The dyspnea only occurs with exertion. He does have a history of smoking but quite a few years. Denies a history of COPD. He did work with vinyl and car upholstery for multiple years. He reports no signs of bleeding including, dark stools, hematuria. He does continue to endorse lower back and right hip pain. He believes he is scheduled to see an Oncologist this Monday at [facility]. - CONSULTS | PROCEDURES Consultations: Dr. Santos Procedures: non procedure at this time - HOSPITAL COURSE Hospital Course: pt was admitted for dyspnea. pt was found to have severe anemia and pancytopenia. pt still has positive occult stool. But pt has also thrombocytopenia, PLT is 14,000. pt had two unit of blood transfusion, and 4 unit of plt transfusion. pancytopenia is believed from bone mechoopda suppression from multiple bone lesions, and significantly elevated PSA, prostate CA which was found about two weeks. pt then require 7 liter of O2 to remain 90% sats. CTA of chest reveal no PE, but with multifocal groundglass opacities in both lung. the finding suggest fungal infection or septic emboli, rarely, hemorrhagic pulmonary metastasis can have this appearance. pt was given once of caspofungin for anti-fungal infection since pt has severe respiratory distress. pt then had blood culture, which is pending. I reported all pt's medical conditions including above to [facility] pt was transferred to [facility] for high level of care - ALLERGIES Allergies/Adverse Reactions: Allergies Allergy/AdvReac Type Severity Reaction Status Date / Time No Known Drug Allergies Allergy Verified 05/08/14 09:42 - MEDICATIONS Home Medications: Ambulatory Orders Medication Instructions Recorded Confirmed Ferrous Sulfate 325 mg PO DAILY #30 tablet 04/09/19 04/19/19 Omeprazole 40 mg PO BID #20 capsule. 04/09/19 04/19/19 Sucralfate 1 gm PO TID #30 tablet 04/09/19 04/19/19 Albuterol Sulfate [Proair Hfa 1 - 2 puffs INH Q4H PRN #1 inhaler 04/18/19 Inhaler] Ipratropium/Albuterol [Combivent 4 gm IH Q6H PRN #1 aer.w.adap 04/18/19 Respimat] - PHYSICAL EXAM AT DISCHARGE General Appearance: positive: No acute distress, Alert. negative: Lethargic Eyes Bilateral: positive: Normal inspection, PERRL, No lid inflammation, Conjunctivae nml ENT: positive: ENT inspection nml, Pharynx nml, No signs of dehydration. negative: Purulent nasal drainage, Pharyngeal erythema, Oral lesions Neck: positive: Nml inspection, Thyroid nml, No JVD, Trachea midline. negative: Thyromegaly, Lymphadenopathy (R), Lymphadenopathy (L), Stiff neck, Swelling/bruising, Tracheal deviation Respiratory: positive: Chest non-tender, No respiratory distress. negative: Wheezes, Rales, Rhonchi Cardiovascular: positive: Regular rate & rhythm, No murmur, No gallop, Tachycardia. negative: Irregularly irregular, Extrasystoles, Bradycardia, JVD present, Systolic murmur, Diastolic murmur Peripheral Pulses: positive: 2+ Abdomen: positive: Non-tender, No organomegaly, Nml bowel sounds, No distention. negative: Tenderness, Guarding, Rebound Back: positive: Nml inspection. negative: CVA tenderness (R), CVA tenderness (L) Skin: positive: Color nml, No rash, Warm, Dry. negative: Cyanosis, Diaphoresis, Pallor Extremities: positive: Non-tender, Full ROM. negative: Nml appearance, Calf tenderness, Joint swelling, Yovani's sign/cords Neurologic/Psychiatric: positive: Oriented x3, Motor nml, Sensation nml, Mood/affect nml. negative: Weakness, Sensory loss, Facial droop, Slurred/abnml speech, Depressed mood/affect - LABS Result Diagrams: 04/19/19 20:02 04/19/19 05:20 - FOLLOW UP Follow Up: pt was transferred to [facility] for high level care - TIME SPENT Time Spent in Discharge (Minutes): 60"
[2019-04-20] MEDS ORDERED: CASPOFUNGIN 50 MG in SODIUM CHLORIDE 0.9% 100ML 100 ML IV SCH (09:00)
== END 2019-04-20 01:55 | disposition short-term general hospital (02) ==
LOC: ED 18:38 → MS2 22:04
PROVIDERS: ADMIT Internal Medicine; ATTEND Nurse Practitioner Gerontology
DX: J96.91 Respiratory failure, unspecified with hypoxia (principal); K25.4 Chronic or unspecified gastric ulcer with hemorrhage; D50.0 Iron deficiency anemia secondary to blood loss (chronic); T47.1X6A Underdosing of other antacids and anti-gastric-secretion drugs, initial encounter; Z91.128 Patient's intentional underdosing of medication regimen for other reason; Y92.009 Unspecified place in unspecified non-institutional (private) residence as the place of occurrence of the external cause; D61.818 Other pancytopenia; R91.8 Other nonspecific abnormal finding of lung field; G89.29 Other chronic pain; M54.5 Low back pain; M25.551 Pain in right hip; R97.20 Elevated prostate specific antigen [PSA]; R59.0 Localized enlarged lymph nodes; M89.9 Disorder of bone, unspecified; K21.9 Gastro-esophageal reflux disease without esophagitis; Z79.899 Other long term (current) drug therapy; Z87.891 Personal history of nicotine dependence; Z91.19 Patient's noncompliance with other medical treatment and regimen; Z87.898 Personal history of other specified conditions; Z57.8 Occupational exposure to other risk factors
CPT/HCPCS: 36415; 36430; 71046; 71275; 80048; 80053; 82274; 82607; 82728; 83540; 83615; 83690; 83735; 84100; 84466; 84484; 85025; 85044; 85379; 85610; 86850; 86900; 86901; 86920; 87040; 93005; 94640; 94761; 96365; 99285; 99291; A9270; G0378; J0637; J7626; P9016; P9035; Q9967